=== PATIENT | male | born 1975 | race Caucasian/White ===

== ENCOUNTER 2016-12-10 15:40 | Inpatient (IN) | payer OTHER ==
--- NOTE | ~2016-12-10 | OR ---
Unit #: [id number] #: [id number] Patient: MARIELENA LINO [id number] [address] [address] [id number] I MR#: [id number] NAME: MARIELENA LINO ROOM: 466 Date of Procedure: 12/11/2016 Admission Date: 12/10/2016 Surgeon: Caden Soolrzano M.D. : 1975 Attending Physician: Luzma Lopez M.D. OPERATIVE REPORT PREOPERATIVE DIAGNOSIS Dysphagia for the past week. PROCEDURES PERFORMED Upper gastrointestinal endoscopy and biopsy. POSTOPERATIVE DIAGNOSES 1. The patient had [id number] distal erosive esophagitis; however, no stricture or mucosal ring was present. 2. Mild prepyloric antral erosive gastritis. 3. Rest of the examination up to third part of duodenum was normal. RECOMMENDATIONS 1. Pantoprazole 40 mg p.o. b.i.d. 2. Diet as tolerated. SEDATION USED Procedural sedation. DESCRIPTION OF PROCEDURE Following detailed explanation of the potential risks and complications of An upper endoscopy, namely perforation, bleeding, and complication related to sedation, the patient was brought to GI lab and laid in the left lateral decubitus position. Incremental conscious sedation using Versed was given. Posterior pharyngeal wall was sprayed with Cetacaine spray. Lubricated tip of the Olympus video upper endoscope was passed through the bite block into the proximal esophagus under direct vision. The entire esophageal mucosa was examined. The patient was noted to have grade 1 to 2 distal erosive esophagitis with erosions ascending above the Z-line in the distal esophagus. The scope was then advanced into the gastric cavity and the latter was insufflated. Mucosa of the fundus, body, and antrum was examined. Mild prepyloric antral erythema erosions noted indicating antral gastritis. Pylorus was intubated with visualization of the normal duodenal bulb and second and third part of the duodenum. Upon withdrawal and retroflexion, incisura, cardia, and greater curve was examined and a biopsy was obtained from the antrum for CLOtest. The scope was then withdrawn in the distal esophagus. The entire esophageal mucosa was examined all the way up to pharynx. No additional findings were noted. The patient tolerated the procedure without any postprocedure complications. Unit #: [id number] #: [id number] Patient: MARIELENA LINO Dictated by... Guillermo Carroll/keysha TD: 12/11/2016 21:43 JOB #: [id number] CC: Kameron Garnica M.D. OPERATIVE REPORT Page 1 of 1 X Caden Solorzano MD X PROCEDURE OPERATIVE NOTE
--- NOTE | ~2016-12-10 | MR32 ---
[facility] A Service of [facility] / [facility] RADIOLOGY TEXT RESULTS PATIENT: MARIELENA LINO LOCATION: [address] : [birth year] UNIT #: [id number] AGE: [address]: Shae Amaya MD SEX: M ORDER DR: [id number] [place] [address] [facility]. [place], [place] [address] [id number] I MR#: [id number] Acc #: [id number] NAME: MARIELENA LINO : 1975 SEX: M STUDY DATE/TIME: 12/12/2016 20:39 UNIT: [facility] ROOM: [facility] STUDY DESCRIPTION: MR Cervical Wo Contrast Attending Physician: Shae Amaya M.D. Ordering Physician: Kati Gomez M.D. Primary Care Physician: Primary Care Physician No MRI CENTER REPORT This report is preliminary unless electronic signature is present. EXAM Cervical MRI HISTORY Patient admitted on 12/10/2016 with generalized weakness, aphasia and a chronic history of sarcoidosis. TECHNIQUE Multiplanar imaging of the cervical spine was performed with short and long TR. FINDINGS Alignment is satisfactory. Disc space heights are preserved. There is mild disc bulging at C3-4, more prominent to the right of midline than to the left. There is no evidence of significant canal or foraminal narrowing. The cord is normal in size and signal. There is no evidence of marrow edema. No paraspinous masses are seen. The paraspinous muscles suggest generalized atrophy. IMPRESSION 1. Minimal disc bulging to the right of midline at C3-4. 2. Normal cervical cord. 3. No evidence of marrow edema. 4. Generalized atrophy of paraspinous muscles. Dictated by... Gonzalo Falcon M.D. THIS IS AN ELECTRONICALLY VERIFIED REPORT Gonzalo Falcon M.D. at 12/13/2016 3:47 PM Ramon TD: 12/13/2016 07:58 [facility] A Service of [facility] / [facility] RADIOLOGY TEXT RESULTS PATIENT: MARIELENA LINO LOCATION: [address] : [birth year] UNIT #: [id number] AGE: [address]: Shae Amaya MD SEX: M ORDER DR: GABBY #: [id number] MRI CENTER REPORT Page 1 of 1 COPY
--- NOTE | ~2016-12-10 | A ---
[facility] Nutrition Therapy DATE: 12/13/16 Patient: MARIELENA LINO Physician: MATILDE Address: [address] [facility] Room/Bed: [address], Zip: [place] [id number] Admit Date: 12/10/16 Date of : [birth year] Height: 5 7 Weight: 250 113.39 NUTRITIONAL ASSESSMENT: REASON: NPO IN ICU ASSESSMENT PT IS 41 Y.O. MALE ADMITTED FOR ASPIRATION PNA PMH: SARCOIDOSIS Anthropometrics: 5'7", WT: 250# (BEDSIDE) (114 KG), BMI: 39.2, 169%IBW Labs: GLU: 155, BUN: <5, CREAT: <0.3, ALT: 41, K+:3.4 Meds: KCL, PROTONIX, NACL I/O & Bowel function: 120/1275 Skin Integrity: NO KNOWN SKIN ISSUES Estimated Nutrition Needs: 5690-9502 KCAL (15-20 KCAL/KG BW) 114-136 G PRO (1.0-1.2 G PRO/KG BW) FLUIDS CONSISTENT W/KCAL NEEDS OR MANAGE PER MD Assessment: CHART REVIEWED AND EVENTS NOTED. PT SEEN FOR NPO IN ICU ASSESSMENT. PT CURRENTLY ASLEEP ON BIPAP, UNABLE TO INTERVIEW PT. RD SPOKE TO FAMILY. FAMILY REPORT PT TO HAVE DIFFICULTY SWALLOWING PAST MONTH AND REPORTS ~30-40# WEIGHT LOSS IN PAST MONTH/SEVERE!. PER RN AND CHART, PT NOTED TO HAVE HYDROELECTRIC PLANT STRUCTURAL ENGINEER EVAL REVEALING ASPIRATION AND DYSPHAGIA 2'?NEUROMUSCULAR DYSFUNCTION/WEAKNESS. NO CURRENT PLANS IN PLACE FOR RE-HYDROELECTRIC PLANT STRUCTURAL ENGINEER EVAL. RD TO FOLLOW AND MAKE RECOMMENDATIONS BELOW. FAMILY REPORTED NO DIET QUESTIONS AT THIS TIME. Dx: INADEQUATE ORAL INTAKE R/T DYSPHAGIA NOTED AEB HYDROELECTRIC PLANT STRUCTURAL ENGINEER EVAL AND FAMILY REPORT ABOVE, SEVERE ~30-40# WEIGHT LOSS NOTED. Intervention: 1. NPO Monitoring, Evaluation and Goals: 1. ORAL INTAKE; ADVANCE DIET TOLERATED PER HYDROELECTRIC PLANT STRUCTURAL ENGINEER W/NO SIGNS OF DYSPHAGIA (PO>50%) 2. ENTERAL NUTRITION; PROVIDE ~80-100% ESTIMATED NEEDS 3. LABS; WNL: GLU, K+ 4. WEIGHTS; PREVENT UNINTENTIONAL WEIGHT LOSS MONITOR: [facility] Nutrition Therapy DATE: 12/13/16 Patient: MARIELENA LINO Physician: MATILDE Address: [address] Room/Bed: [address], Zip: [place] [address] Admit Date: 12/10/16 Date of : [birth year] Height: 5 7 Weight: 250 113.39 -WEIGHTS -HYDROELECTRIC PLANT STRUCTURAL ENGINEER RE-EVAL -DIET ADVANCEMENT/PO INTAKE -ALTERNATIVE NUTRITION? -LABS Recommendations: 1. ONCE MEDICALLY FEASIBLE, ADVANCE DIET PER HYDROELECTRIC PLANT STRUCTURAL ENGINEER + REGULAR DIET 2. IF PT FAILS HYDROELECTRIC PLANT STRUCTURAL ENGINEER RE-EVAL/DEEMS PT NOT APPROPRIATE FOR DIET ADVANCEMENT, RECOMMEND TO PLACE DHT AND BEGIN ALTERNATIVE NUTRITION SUPPORT OF JEVITY 1.5 @ 20 ML/HR, ADVANCE 10 ML q 8 HOURS TO GOAL RATE OF 60 ML/HR + SUGAR-FREE PROSTAT BID -PROVIDES 2360 KCAL, 121 G PRO, 1094 ML FREE H20 ADD FREE H20 FLUSHES PER MD 3. REPLACE K+-NOTED TO BE LOW RD WILL F/U PER PROTOCOL PT IS SEVERELY COMPROMISED Respectfully, SAVI SCHULZ MS, RD, LD [facility] cc: client file
--- NOTE | ~2016-12-10 | DS ---
Unit #: [id number] #: [id number] Patient: MARIELENA LINO [id number] [place], [place] [address] [id number] I MR#: [id number] NAME: MARIELENA LINO ROOM: 548 Age: 41 Sex: M Admission Date: 12/10/2016 : 1975 Discharge Date: 12/28/2016 Attending Physician: Shae Amaya M.D. Primary Care Physician: No Primary Care Physician DISCHARGE SUMMARY HOSPITAL COURSE Since last dictation, patient has done exceptionally well. He has been removed from the ventilator and is being maintained either on TP3 with suctioning or a trach collar on 8 L with normal oxygen saturations. He has not had any respiratory distress. Given he is doing well on the ventilator, patient is felt to be appropriate for [facility] and we are currently waiting precertification. If obtained he can be discharged later today. Again patient has this undiagnosed neuromuscular weakness, which may Represent a seronegative myasthenia gravis versus another underlying condition. He will need EMG and nerve conduction studies upon arrival to [place] to further evaluate. However, he has significantly improved following a pulse dose of IVIG and continued Mestinon therapy. DISCHARGE CONDITION Stable. DISCHARGE STATUS Discharged to [facility]. DISCHARGE MEDICATIONS 1. Albuterol sulfate 3 mL nebulized 4 times daily p.r.n. for shortness of breath. 2. Tylenol 325 mg per PEG q.4 hours p.r.n. for mild pain. 3. Lovenox 40 mg subcutaneously q. 24 hours. 4. Trazodone 50 mg at bedtime per PEG. 5. Docusate syrup 100 mg for 10 mL, 300 mg per G-tube daily p.r.n. for constipation. 6. MiraLAX 17 g per PEG daily p.r.n. for constipation. 7. Oxycodone 5 mg per PEG 4 time daily p.r.n. for pain. 8. Mestinon 60 mg per PEG every 8 hours. 9. Protonix 40 mg per PEG daily. 10. Jevity 1.5 at 60 mL/hour. 11. In addition, patient received 30 mL of sugar free ProStat b.i.d. and free water flushes 50 mL q.4 hours. DISCHARGE INSTRUCTIONS 1. The patient is to remain NPO for now but will be seen by speech therapy at [facility] to further evaluate his dysphagia secondary to his neuromuscular weakness. 2. He can increase activity as tolerated, under the care of physical and occupational therapy. Unit #: [id number] #: [id number] Patient: MARIELENA LINO 3. I will continue tube feeds as previously noted. FOLLOWUP Again, patient will need to be seen by neurology at [facility] for further evaluation of this neuromuscular weakness with EMG and nerve conduction studies. Will also be followed by pulmonology at [facility]. Dictated by... Shae Amaya M.D. LEANNE/simón TD: 12/28/2016 08:03 JOB #: [id number] DISCHARGE SUMMARY Page 1 of 1 X Shae Amaya MD X DISCHARGE SUMMARY
--- NOTE | ~2016-12-10 | FU ---
[facility] Nutrition Therapy DATE: 12/20/16 Patient: MARIELENA LINO Physician: MATILDE Address: [address] [facility] Room/Bed: [address], Zip: [place] [address] Admit Date: 12/10/16 Date of : [birth year] Height: 5 7 Weight: 226 102.6 NUTRITION MONITORING/FOLLOW-UP: Reason: Tube feed follow-up Anthropometrics: Ht: 5'7" Adm wt: 113.6 kg (250#) BMI: 39.2 Current wt: 102.7 kg (226#) Labs: Cl- 99, Gluc 140, Creat 0.3 Meds: Zofran, Mg, K, Protonix, Propofol @ 12 mL/hr I&O's: 2547/1890, last BM 12/15 Skin: no issues noted, no edema noted Estimated Nutrition Needs: 8798-1376 kcal (15-20 kcal/kg) 114-136 g protein (1.0-1.2 g/kg) Assessment: Chart reviewed, events noted. Pt is remains awake and intubated in the ICU. Pt was extubated and re-intubated yesterday (12/19) d/t weak throat muscles. Per RN, plans in place for trach and PEG placement. Pt is now receiving propofol @12 mL/hr, which is providing an extra 317 kcal from lipids/d. Rate of enteral nutrition was decreased yesterday (12/19) to 45 mL/hr + prostat TID d/t propofol. Per pump history, pt received 91% of goal volume x 24 hrs. See recommendations below. Dx: Inadequate oral intake RT dysphagia AEB CAR WASH MANAGER evaluation and family report, severe ~30-40# weight loss. -ACTIVE Intervention: 1. Enteral nutrition Monitoring, Evaluation and Goals: 1. Enteral nutrition; provide >80% of estimated needs and goal volume x 24 hrs -MET 2. Labs; WNL -IN PROGRESS 3. Weight; prevent unintentional weight loss -IN PROGRESS Recommendations: 1. While propofol is being provided, continue Jevity 1.5 @ 45 mL/hr + 30 mL prostat TID. This provides: 2237 kcal/ 114 g protein/ 821 mL free H2O. Add free h20 flushes per MD 2. If propofol d/c'd, increase rate of Jevity 1.5 to new goal rate of 60 mL/hr 30 mL [facility] Nutrition Therapy DATE: 12/20/16 Patient: MARIELENA HOLLAND Physician: MATILDE Address: [address] [facility] Room/Bed: [address], Zip: [place] [address] Admit Date: 12/10/16 Date of : [birth year] Height: 5 7 Weight: 226 102.6 prostat BID. This will provide: 2360 kcal/ 121 g protein/ 1094 mL free H2O. Add free h20 flushes per MD 3. Once pt extubated, advance diet per CAR WASH MANAGER + regular Status: Pt is at a moderate nutritional risk. RD will f/u per protocol. Respectfully, Teressa Holden, Pantograph Machine Set Up Operator Jarad Machado MS, RD, LD Food and Nutritional Services [facility] cc: client file
--- NOTE | ~2016-12-10 | CR71 ---
[facility] A Service of [facility] & [facility] RADIOLOGY TEXT RESULTS PATIENT: MARIELENA LINO LOCATION: [address] : [birth year] UNIT #: [id number] AGE: [address]: Shae Amaya MD SEX: M ORDER DR: [id number] [facility] [address] [facility]. [place], [place] [address] [id number] I MR#: [id number] Acc #: [id number] NAME: MARIELENA LINO : 1975 SEX: M STUDY DATE/TIME: 12/18/2016 18:02 UNIT: [facility] ROOM: [facility] STUDY DESCRIPTION: CR Chest Single View Attending Physician: Shae Amaya M.D. Ordering Physician: Shae Amaya M.D. Primary Care Physician: Primary Care Physician No MEDICAL IMAGING REPORT This report is preliminary unless electronic signature is present EXAM Portable chest HISTORY Intubation. Respiratory failure. FINDINGS ETT tip is 4 cm above the chichi. Right arm-approach PICC tip is near the junction of the SVC and right atrium. Feeding tube extends into the stomach but the tip is not seen. Elevation of the right hemidiaphragm and bilateral pleural effusions are similar to yesterday. Increased atelectasis or infiltrate in the left base. Dictated by... Max Ashley M.D. THIS IS AN ELECTRONICALLY VERIFIED REPORT Max Ashley M.D. at 12/18/2016 10:51 PM DFL/psc TD: 12/18/2016 21:49 JOB #: [id number] MEDICAL IMAGING REPORT Page 1 of 1 COPY
--- NOTE | ~2016-12-10 | CR72 ---
[facility] A Service of [facility] & [facility] / [facility] RADIOLOGY TEXT RESULTS PATIENT: MARIELENA LINO LOCATION: [place] [address] : [birth year] UNIT #: [id number] AGE: [address]: Luzma Lopez MD SEX: M ORDER DR: [id number] [place] [address] [facility]. [place], [place] [address] [id number] I MR#: [id number] Acc #: [id number] NAME: MARIELENA LINO : 1975 SEX: M STUDY DATE/TIME: 12/10/2016 14:56 UNIT: [facility] ROOM: 922[address] STUDY DESCRIPTION: CR Chest Single View Portable Attending Physician: Luzma Lopez M.D. Ordering Physician: Mihai Husain M.D. Primary Care Physician: Primary Care Physician No MEDICAL IMAGING REPORT This report is preliminary unless electronic signature is present EXAM Portable chest HISTORY Difficulty breathing and swallowing for 1 day. FINDINGS Moderate patchy infiltrate in the left lung base is new compared to chest x-ray 09/24/2009. Although nonspecific this could be due to pneumonia. Mild linear atelectasis or scarring at the right base. Moderate chronic elevation of the right hemidiaphragm is stable. Remainder of the lungs are clear. IMPRESSION 1. Moderate patchy infiltrate in the left lung base. Although nonspecific this could be due to pneumonia in the appropriate clinical context. Correlation to patient history and symptoms is recommended and short-term followup chest x-ray is suggested. 2. Moderate chronic elevation of the right hemidiaphragm. Dictated by... Max Ashley M.D. THIS IS AN ELECTRONICALLY VERIFIED REPORT Max Ashley M.D. at 12/11/2016 11:26 PM XAVIER/duane TD: 12/11/2016 09:43 JOB #: [id number] MEDICAL IMAGING REPORT Page 1 of 1 COPY
--- NOTE | ~2016-12-10 | FU ---
[facility] Nutrition Therapy DATE: 12/23/16 Patient: MARIELENA LINO Physician: MATILDE Address: [address] [facility] Room/Bed: [address], Zip: [place] [address] Admit Date: 12/10/16 Date of : [birth year] Height: 5 7 Weight: 238 108.2 NUTRITION MONITORING/FOLLOW-UP: Reason: PT SEEN FOR FOLLOW-UP DX: ASPIRATION PNA Anthropometrics: 5'7", WT: 238# (108 KG), BMI: 37.3 -WEIGHTS HAVE RANGED 226-250# SINCE ADMIT Labs: GLU: 132, CREAT: 0.3, CA+:8.1, ALB: 2.5 (12/16/16) Meds: ZOFRAN, MG/K PROTOCOL, PROTONIX I&O's: 4641/1500 Skin: NO KNOWN SKIN ISSUES Estimated Nutrition Needs: 7555-9083 KCAL 114-136 G PRO Assessment: CHART REVIEWED AND EVENTS NOTED. PT SEEN FOR FOLLOW-UP. PT ON CPAP, EXTUBATED AT TIME OF VISIT. RD SPOKE TO FAMILY AT BEDSIDE. FAMILY REPORTED NO DIET QUESTIONS AT THIS TIME. OF NOTE, PT RECEIVING ALTERNATIVE NUTRITION SUPPORT OF JEVITY 1.5 @ 45 ML/HR + SUGAR-FREE PROSTAT TID. PLANS IN PLACE TO ADVANCE EN TO GOAL RATE OF 60 ML/HR + SUGAR-FREE PROSTAT BID. RD TO CONTINUE TO FOLLOW. -TUBE FEEDS PROVIDE 1920 KCAL, 114 G PRO, 821 ML FREE H20 Dx: INADEQUATE ORAL INTAKE R/T DYSPHAGIA AEB EMMA TOVAR, FAMILY REPORT, ~30-40# WEIGHT LOSS.-ACTIVE Intervention: 1. ENTERAL NUTRITION SUPPORT Monitoring, Evaluation and Goals: 1. ENTERAL NUTRITION; PROVIDE ~80-100% ESTIMATED NUTRIENT NEEDS-ACTIVE 2. ORAL INTAKE; ADVANCE DIET PER ARC FURNACE OPERATOR AND TOLERATE W/NO C/O N/V/D (PO>50%)-NOT MET YET 3. LABS; WNL-ACTIVE MONITOR: -TF RATE/RESIDUALS -WEIGHTS -LABS -EMMA TOVAR [facility] Nutrition Therapy DATE: 12/23/16 Patient: MARIELENA LINO Physician: MATILDE Address: [address] [facility] Room/Bed: [address], Zip: [place] [address] Admit Date: 12/10/16 Date of : [birth year] Height: 5 7 Weight: 238 108.2 Recommendations: 1. RECOMMEND TO ADVANCE CURRENT ENTERAL NUTRITION SUPPORT OF JEVITY 1.5 TO GOAL RATE OF 60 ML/HR + 30 ML SUGAR-FREE PROSTAT BID -TOTAL PROVIDES 2360 KCAL, 121 G PRO, 1094 ML FREE H20 CONTINUE FREE H20 FLUSHES PER MD 2. ONCE MEDICALLY FEASIBLE, ADVANCE DIET PER ARC FURNACE OPERATOR + REGULAR DIET RD WILL F/U PER PROTOCOL PT IS MODERATELY COMPROMISED Respectfully, SAVI SCHULZ MS, RD, LD Food and Nutritional Services [facility] cc: client file
--- NOTE | ~2016-12-10 | CR7 ---
[facility] A Service of [facility] & [facility] RADIOLOGY TEXT RESULTS PATIENT: MARIELENA LINO LOCATION: [address] : [birth year] UNIT #: [id number] AGE: [address]: Shae Amaya MD SEX: M ORDER DR: [id number] [facility] [address] [facility]. [place], [place] [address] [id number] I MR#: [id number] Acc #: [id number] NAME: MARIELNEA LINO : 1975 SEX: M STUDY DATE/TIME: 12/13/2016 14:43 UNIT: [facility] ROOM: [facility] STUDY DESCRIPTION: CR Abdomen Single AP View Attending Physician: Shae Amaya M.D. Ordering Physician: Kameron Garnica M.D. Primary Care Physician: No Primary Care Physician MEDICAL IMAGING REPORT This report is preliminary unless electronic signature is present EXAM KUB 12/13 INDICATIONS Feeding tube placement today. FINDINGS Supine view of the abdomen was obtained. Tip of a flexible feeding tube is noted in the antrum of the stomach. The bowel gas pattern is normal. Dictated by... Gonzalo Tovar Jr., M.D. THIS IS AN ELECTRONICALLY VERIFIED REPORT Gonzalo Tovar Jr., M.D. at 12/14/2016 7:53 AM ODILIA/chas TD: 12/13/2016 17:02 JOB #: [id number] MEDICAL IMAGING REPORT Page 1 of 1 COPY
--- NOTE | ~2016-12-10 | CR72 ---
[facility] A Service of [facility] RADIOLOGY TEXT RESULTS PATIENT: MARIELENA LNIO LOCATION: [address] : [birth year] UNIT #: [id number] AGE: [address]: Shae Amaya MD SEX: M ORDER DR: [id number] [address] [address] [id number] I MR#: [id number] Acc #: [id number] NAME: MARIELENA LINO : 1975 SEX: M STUDY DATE/TIME: 12/19/2016 2:44 UNIT: [facility] ROOM: [facility] STUDY DESCRIPTION: CR Chest Single View Portable Attending Physician: Shae Amaya M.D. Ordering Physician: Julia Werner D.O. Primary Care Physician: Primary Care Physician No MEDICAL IMAGING REPORT This report is preliminary unless electronic signature is present EXAM AP portable chest, 12/19/2016 HISTORY Respiratory failure. Pneumonia. Endotracheal tube. Followup cardiopulmonary status. TECHNIQUE AP portable chest x-ray. FINDINGS The examination shows no significant change since the prior two studies. Elevation right hemidiaphragm. Infiltrate or atelectasis in the lung bases. Upper lungs clear. Endotracheal tube, right arm PICC and Dobbhoff feeding tube remain in good position. IMPRESSION Stable portable chest radiograph, unchanged since yesterday. Dictated by... Jakob Haines M.D. THIS IS AN ELECTRONICALLY VERIFIED REPORT Jakob Haines M.D. at 12/19/2016 5:58 AM MATIAS/denise TD: 12/19/2016 04:38 JOB #: [id number] MEDICAL IMAGING REPORT [facility] A Service of [facility] RADIOLOGY TEXT RESULTS PATIENT: MARIELENA LINO LOCATION: [facility]09-30 : [birth year] UNIT #: [id number] AGE: [address]: Shae Amaya MD SEX: M ORDER DR: Page 1 of 1 COPY
--- NOTE | ~2016-12-10 | CO ---
Unit #: [id number] #: [id number] Patient: MARIELENA LOGAN [id number] [address] [place], [place] [address] [id number] I MR#: [id number] NAME: MARIELENA LOGAN ROOM: 466 Age: 41 Sex: M Admission Date: 12/10/2016 : 1975 Attending Physician: Luzma Lopez M.D. Consultation Date: 12/11/2016 CONSULTATION REPORT REASON FOR CONSULTATION Dysphagia. HISTORY OF PRESENT ILLNESS Mr. 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 He has been having increasing shortness of breath for the past 2 to 3 weeks along with difficulty in swallowing over the last 10 days. He also has cough productive of sputum. There was no history of fever, chills, or rigors. He had difficulty both with swallowing liquids as well as solids, which seem to get stuck in the esophagus. The patient has had some aspiration on a swallow study recently done. He was discharged home from the [facility] [place] [facility] Emergency Room on 12/09/2015. He was given prednisone for sarcoidosis at that time. Upon arrival this time, he is afebrile with a temperature of 98.1, but has sinus tachycardia, and patchy infiltrate in left lung base. PAST MEDICAL HISTORY Significant for history of sarcoidosis diagnosed in 2009. The patient does not have any family doctor. PAST SURGICAL HISTORY Included a bronchoscopy and right hand surgery. MEDICATIONS At home, the patient has been on prednisone home medication. He is not on any other medication. ALLERGIES No known drug allergies. FAMILY HISTORY Mother has hypothyroidism. No family history of colon, pancreatic cancer, or liver disease. SOCIAL HISTORY The patient does not smoke. He is being physically quite active except for the past two weeks when he is walking on his walker. He does drink very rarely. Works in a warehouse. Lives at home with his mom. REVIEW OF SYSTEMS Detailed review of organ system does not reveal any fever, chills, or rigors. There is history of weight loss about 25 to 30 pounds over the past couple of months. There was no history of headache, seizures, chest Unit #: [id number] #: [id number] Patient: HOLLAND,MARIELENA pain, or syncope. There is history of cough with some expectoration and shortness of breath. No history of hemoptysis. No history of dysuria, hematuria, or pyuria. No history of abdominal pain. No history of nausea, vomiting, diarrhea. No history of hematemesis, melena, or hematochezia. No history of skin rash, aphthous ulcer in mouth, or reactive arthritis. Rest of the review of organ systems is unremarkable. PHYSICAL EXAMINATION GENERAL: He appears unwell and sick, and has sinus tachycardia and tachypnea. VITAL SIGNS: Indicate a temperature of 97.5, pulse is 109 per minute and regular, respiratory rate is 26, blood pressure is 136/85. He weighs 250 pounds, which is close to his baseline weight. HEENT: He has no pallor, icterus, lymphadenopathy, or peripheral edema. CARDIOVASCULAR: Normal heart sounds. No murmurs on auscultation. LUNGS: Reveals bilateral diminished symmetric air entry. ABDOMEN: Soft, obese, and nontender. Liver and spleen are not palpable. Bowel sounds normal. DIAGNOSTIC STUDIES LABORATORY RESULTS: Shows a leukocytosis with a white count of 18,000 with left shift and a hemoglobin of 8 indicating some degree of hemoconcentration, platelet count is 250. LFTs showing AST and ALT of 25 and 60 respectively. Alkaline phosphatase is normal. The patient's BUN and creatinine is also normal. Blood glucose 131. IMAGING STUDIES: A chest x-ray shows left lower lobe infiltrate. CLINICAL IMPRESSION The patient with new onset of pneumonia and also dysphagia for the past week to 10 days. The latter could be related to gastroesophageal reflux or Zaina esophagitis. A diagnostic endoscopy will be performed shortly. The patient will be reviewed thereafter. The pros and cons of the procedure and potential risks and complications of the procedure were discussed with the patient and his mom and they were reassured. Thank you for asking me to see this pleasant gentleman. I appreciate the consult. Dictated by.Betty. Guillermo Carroll TD: 12/11/2016 23:30 JOB #: [id number] Unit #: [id number] #: [id number] Patient: MARIELENA LOGAN CONSULTATION REPORT Page 1 of 1 X Caden Solorzano MD CONSULTATION REPORT
--- NOTE | ~2016-12-10 | TOC ---
Unit #: [id number] #: [id number] Patient: MARIELENA LINO [id number] [address] [place], [place] [address] [id number] I MR#: [id number] NAME: MARIELENA LINO ROOM: CIC2 Age: 41 Sex: M Admission Date: 12/10/2016 : 1975 Attending Physician: Shae Amaya M.D. Primary Care Physician: No Primary Care Physician TRANSFER OF CARE SUMMARY [facility], general surgery. PROCEDURES Trach and PEG placement. HOSPITAL COURSE Since last dictation, patient was extubated December 18 after he had improvement in respiratory status. Unfortunately, patient developed recurrent significant respiratory secretions and has required recurrent intubation. Ultimately, due to patient's underlying neuromuscular weakness as outlined below, patient has subsequently undergone trach and PEG placement. He is currently being maintained on CPAP therapy during the day with plans for full ventilator support from 6:00 p.m. to 6:00 a.m. His respiratory difficulties at this point are primarily due to his significant dysphagia, which is also a result of his neuromuscular weakness, and the plan ultimately is to try to keep him off ventilator during the day and this will be further evaluated at [facility] upon discharge. Regarding the patient's neuromuscular weakness, he has completed a 5-day course of IVIG on December 19, 2016. He has had significant improvement in weakness since that time, particularly distally, less so proximally. However, he continues to suffer from significant dysphasia. 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 Patient will continue on Mestinon therapy for now and will require neurology consultation and EMG and nerve conduction studies upon arrival to [facility] for further delineation of his underlying neuromuscular disorder. Patient now is clinically stable and is awaiting precertification to transfer to [facility]. Plan is to continue patient on Mestinon upon transfer, again, with plans for EMG and nerve conduction studies ultimately. Further hospital course can be dictated as an addendum. Dictated by... Shae Amaya M.D. LEANNE/consuelo Unit #: [id number] #: [id number] Patient: MARIELENA LINO TD: 12/24/2016 11:58 JOB #: [id number] TRANSFER OF CARE SUMMARY Page 1 of 1 X Shae Amaya MD X TRANSFER OF CARE SUMMARY
--- NOTE | ~2016-12-10 | CO ---
Unit #: [id number] #: [id number] Patient: MARIELENA LINO [id number] [place], [place] [address] [id number] I MR#: [id number] NAME: MARIELENA LINO ROOM: CICCU2 Age: 41 Sex: M Admission Date: 12/10/2016 : 1975 Attending Physician: Shae Amaya M.D. Consultation Date: 12/12/2016 CONSULTATION REPORT PRIMARY CARE PHYSICIAN Not listed. REASON FOR CONSULTATION Dysphagia. PATIENT IDENTIFICATION This is a 41-year-old, right-handed, male, evaluated in room 466 at [facility]. SOURCE OF INFORMATION Obtained from the patient as well as the patient's mother at the bedside as well as the medical record. HISTORY OF PRESENT ILLNESS This is a 41-year-old, right-handed, male with a past medical history of sarcoidosis, who presents to [facility] with chief complaint of shortness of air, difficulty swallowing, and weakness. The patient has been seen recently at [facility] over the last week or so for complaints of increased shortness of breath and difficulty swallowing and it looks like he had a video swallow done on 12/06/2016 that showed tracheal aspiration with poor cough reflex following administration of thin liquids. Additionally, also noted moderate luminal narrowing at C4-C5 concerning for possible esophageal stricture. He was discharged home and told to follow up with Gastroenterology. He returned to [facility] Emergency Department on 12/08/2016, and was started on prednisone for possible sarcoidosis exacerbation. His mother states that his steroids were increased, but he was unable to tolerate and only took them for a few days. He presented to [facility] on 12/12/2016 for worsening symptoms. He was admitted for aspiration pneumonia and started on Unasyn and started treatment for possible sepsis with initial lactic acid of 1.1. He underwent upper gastrointestinal endoscopy and biopsy by paper carrier on 12/11/2016 for dysphagia, with postoperative diagnosis of myvi-sp-jvubxcrl distal erosive esophagitis with no stricture or mucosal ring present, mild prepyloric antral erosive gastritis, with the rest of the examination up to the third part of the duodenum normal. He was recommended to start pantoprazole and diet as tolerated. He was seen by Speech Therapy today after having a video and was recommended that he remain n.p.o. Neurology was asked to evaluate given his weakness and ongoing dysphagia of unclear etiology. I spoke with Dr. Amaya at the time of consultation. After speaking with the patient and the patient's mother, the patient's mother states that he fell two years ago and she thinks that he has been progressively worse since then. She states that he fell on ice during winter and hit the back Unit #: [id number] #: [id number] Patient: MARIELENA LINO of his head with no syncope or loss of consciousness. She states he was seen in the emergency room and had x-rays and told that there was no injury and that he needs supportive care. However, since then he has been independent and unable to ambulate, and actually worked at a warehouse; however, 2 to 3 weeks ago, he began to have significant difficulty with swallowing, walking, coughing, with generalized weakness and fatigue. She reports he has had a 30- to -40 pound weight loss over the last month, and certainly on examination he is weak. He denies any focal facial arm or leg symptoms. He reports occasional numbness and tingling of his arms and legs bilaterally over the last couple of years, but no focal findings. He denies any focal weakness, sudden speech arrest, sudden vision changes, or any vision changes whatsoever. He denies any headache, fever, or chills. He complains of chronic intermittent neck pain over the last two years. His chief complaint right now is progressive weakness and fatigue, which is generalized, trouble swallowing, and trouble breathing and again this has been going on progressively over the last 2 to 3 weeks. He denies any exacerbating or alleviating factors other than fatigue. PAST MEDICAL HISTORY 1. Sarcoidosis. He is not taking any medications and has not been seen recently as an outpatient. Please see above for ER visits to [facility]. 2. Multiple emergency room visits to [facility] within the past week. Please see above. Please also see H and P. 3. Admission to [facility] from 09/24/2009 through 09/25/2009 for dyspnea. He was seen by Pulmonology and treated for possible bronchospasm, though it is doubtful per their recommendations of true asthma. He had an abnormal chest x-ray and CT scan representing possible sarcoidosis versus fungal pneumonia with reactive adenopathy. He was recommended to schedule a followup at [facility] for further CT scans and biopsy and he has been following at [facility] since then for sarcoidosis per verbal history. 4. Bronchoscopy. 5. Right hand surgery. FAMILY HISTORY Positive for hypothyroidism in his mother. Negative for any neurologic disease, and this was discussed at length with the patient's mother. ALLERGIES No known drug allergies. SOCIAL HISTORY The patient lives with his mom. He normally is independent. Works in a warehouse, but over the last few weeks, he has been walking with a walker due to increasing generalized weakness. He has had 30- to -40 pound weight loss over the last month. No history of tobacco use, alcohol abuse, or illicit drug use. HOME MEDICATIONS As per med rec. Include no medications actually, but it is reported that he was on prednisone. His mother states that he took prednisone for few days and then stopped it due to intolerance of side effects. REVIEW OF SYSTEMS 14-point review of systems was done. Pertinent positives are as discussed above, otherwise negative. Positive symptoms are as discussed above in detail. Unit #: [id number] #: [id number] Patient: MARIELENA LINO PHYSICAL EXAMINATION VITAL SIGNS: Temperature 97.3. He has been afebrile. Pulse 77, respirations 22, blood pressure 143/66, blood pressure in the ER on arrival was 134/96. He has been normotensive throughout his stay. Oxygen saturation 98%. He is on room air currently. Height 5 feet 7 inches, weight 250 pounds, BMI 39. NEUROLOGIC: He is resting in bed comfortably, in no apparent distress. He is awake. He is alert and oriented to person, place, and time as well as events. He has no aphasia. He does have dysarthria and dysphonia. He is able to follow commands. His comprehension appears to be clear and intact. Cranial nerve exam, he demonstrates full maxwell of vision. His eyes are conjugate. He does have left eye ptosis, that is worse with upward gaze testing x1 minute. Extraocular movements otherwise appear to be intact, but he has difficulty looking upwards, but he is able to do so. Sensation of face and scalp is intact. Strength of the muscles of facial expression is intact, but again he has left eye ptosis. Hearing is intact to voice and conversation. Tongue is midline. His uvula is midline and his palate elevation does appear to be intact upon repeated evaluation. Head turning and shoulder shrug is unremarkable independently. Neck is supple. Motor exam, he has significant weakness generalized. He has head and neck flexion weakness significant 3+/5. Head and neck extension is better. 4+ in the extremities proximally and distally. He appears to be weak 3+ to 4-. He appears to be possibly worse distally than proximally. He gets fatigued throughout exam. Sensory exam is intact to soft touch and pinprick sensation. No extinction appreciated. Gait and Romberg deferred at this time. His reflexes are absent throughout. Coordination is otherwise unremarkable. He has decreased tone. DIAGNOSTIC STUDIES IMAGING STUDIES: Chest x-ray from 12/10/2016, per Radiology report, moderate patchy infiltrate in the left lung base; although, nonspecific could be due to pneumonia in the appropriate clinical context correlation to patient's history and symptoms. He was recommended a short-term followup chest x-ray suggested. Moderate chronic elevation in the right hemidiaphragm. LABORATORY RESULTS: Sputum culture, final specimen gram stain sputum. Final specimen acceptable for culture. Moderate white blood cells, occasional epithelial cells, moderate gram-positive cocci in pairs and chains, moderate gram-positive rods, occasional gram-positive cocci in clusters, occasional gram-negative rods. Sodium 148, potassium 3.8, chloride 102, CO2 of 34, glucose 124, BUN 9, creatinine 0.3, estimated GFR 156.1, calcium is 9.3, AST 19, ALT 41, alkaline phosphatase 66, total protein 6.4, albumin 3.5. White blood cell count 13.8, hemoglobin 16, hematocrit 50.9, platelet count 233. Blood cultures preliminary, no growth after 24 hours x2 sets. Troponin less than 0.03 x2 sets. CK 56, procalcitonin 0.4, TSH 2.59, initial lactic acid 1.1, BNP of 21. Arterial blood gas on arrival; pH 7.424, pCO2 50.4, PO2 63.7, bicarb 33, O2 saturation 91.6 on FiO2 of 21%. CARDIOVASCULAR STUDIES: EKG shows sinus tachycardia with a ventricular rate of 104 beats per minute per Cardiology report. Please see that as per the report. IMPRESSION 1. Significant neuromuscular weakness with left ptosis, dysphagia, and dysphonia. Rule out myasthenia gravis. Rule out Lambert-Eaton myasthenic Unit #: [id number] #: [id number] Patient: MARIELENA LINO syndrome. Rule out amyotrophic lateral sclerosis. Rule out chronic inflammatory demyelinating polyneuropathy. 2. Aspiration pneumonia. 3. History of sarcoidosis. PLAN I have discussed the case with Dr. Gomez, who has seen and evaluated the patient as well at this time. The patient has significant neuromuscular weakness, left ptosis more apparent with upward gaze testing, dysphagia, and dysphonia. He has absent reflexes, decreased tone, and has had significant weight loss over the last month. We certainly need to rule out the above differential diagnoses. Dr. Gomez has ordered a CT of the chest without contrast to rule out thymoma, MRI of the brain as well as MRI of the C-spine. He has also ordered acetylcholine receptor antibodies; binding, blocking, and modulating; and Anti-MuSK, or muscle-specific kinase antibodies, and he is going to start him on a trial of low-dose Mestinon to see how he responds. We will follow the patient closely along with you and further recommendations pending workup and further clinical course. We discussed with the patient and his mother at the bedside and they agreed with above. He will also need an outpatient nerve conduction studies and EMGs, and possible lumbar puncture pending current workup and further clinical course. We thank you very much for allowing us to assist in the care of this patient. Dictated by... Vandana Kinney A.P.R.N. for Guillermo Smith/keysha TD: 12/13/2016 02:46 JOB #: [id number] CONSULTATION REPORT Page 1 of 1 X Vandana Kinney APRN X CONSULTATION REPORT
--- NOTE | ~2016-12-10 | CR72 ---
[facility] A Service of [facility] RADIOLOGY TEXT RESULTS PATIENT: MARIELENA LINO LOCATION: [address] : [birth year] UNIT #: [id number] AGE: [address]: Shae Amaya MD SEX: M ORDER DR: [id number]. [place], [place] [address] [id number] I MR#: [id number] Acc #: [id number] NAME: MARIELENA LINO : 1975 SEX: M STUDY DATE/TIME: 12/21/2016 17:59 UNIT: [facility] ROOM: [facility] STUDY DESCRIPTION: CR Chest Single View Portable Attending Physician: Shae Amaya M.D. Ordering Physician: Abdon Oneal Jr., M.D. Primary Care Physician: No Primary Care Physician MEDICAL IMAGING REPORT This report is preliminary unless electronic signature is present EXAM Frontal chest, 12/21/2016 INDICATIONS A 41-year-old male with a new tracheostomy. Shortness of air symptoms began today. TECHNIQUE Frontal chest compared with 02:17 hours. FINDINGS Tracheostomy tube in good position above the chichi. Right-sided PICC line unchanged. Cardiac silhouette borderline in size but stable. Lung volumes are low. Interval decrease in probable band-like atelectasis in the left lung base. There may be trace amount pleural fluid in the left lung base. No new consolidation or pneumothorax. IMPRESSION 1. Tracheostomy tube in good position above the chichi. No pneumothorax. 2. Enteric tube has been removed in the interval. Right-sided PICC line unchanged. 3. Improvement of left basilar atelectasis. Dictated by... Edmundo Ken M.D. THIS IS AN ELECTRONICALLY VERIFIED REPORT Edmundo Ken M.D. at 12/22/2016 7:27 AM Jason TD: 12/21/2016 20:39 [facility] A Service of [facility] RADIOLOGY TEXT RESULTS PATIENT: MARIELENA LINO LOCATION: [address] : [birth year] UNIT #: [id number] AGE: [address]: Shae Amaya MD SEX: M ORDER DR: GABBY #: [id number] MEDICAL IMAGING REPORT Page 1 of 1 COPY
--- NOTE | ~2016-12-10 | CR72 ---
[facility] A Service of [facility] RADIOLOGY TEXT RESULTS PATIENT: MARIELENA LINO LOCATION: [address] : [birth year] UNIT #: [id number] AGE: [address]: Shae Amaya MD SEX: M ORDER DR: [id number] [facility] [address] [place], [place] [address] [id number] I MR#: [id number] Acc #: [id number] NAME: MARIELENA LINO : 1975 SEX: M STUDY DATE/TIME: 12/21/2016 2:17 UNIT: [facility] ROOM: [facility] STUDY DESCRIPTION: CR Chest Single View Portable Attending Physician: Shae Amaya M.D. Ordering Physician: Kameron Garnica M.D. Primary Care Physician: Primary Care Physician No MEDICAL IMAGING REPORT This report is preliminary unless electronic signature is present EXAM AP portable chest 12/21/2016 HISTORY Respiratory failure. Patient on ventilator. Follow up cardiopulmonary status. TECHNIQUE AP portable chest x-ray. FINDINGS The exam shows no change since yesterday. Endotracheal tube, right arm PICC and Dobbhoff feeding tube remain in good position. Persistent elevation right hemidiaphragm and mild infiltrate or atelectasis in the lung bases. IMPRESSION Stable portable chest radiograph, unchanged since yesterday. Dictated by... Jakob Haines M.D. THIS IS AN ELECTRONICALLY VERIFIED REPORT Jakob Haines M.D. at 12/21/2016 5:59 AM MATIAS/serafin TD: 12/21/2016 03:05 JOB #: [id number] MEDICAL IMAGING REPORT Page 1 of 1 COPY
--- NOTE | ~2016-12-10 | CO ---
Unit #: [id number] #: [id number] Patient: MARIELENA LOGAN [id number] [address] [address] [id number] I MR#: [id number] NAME: MARIELENA LOGAN ROOM: CIC2 Age: 41 Sex: M Admission Date: 12/10/2016 : 1975 Attending Physician: Shae Amaya M.D. Primary Care Physician: Primary Care Physician No Consultation Date: 12/20/2016 CONSULTATION REPORT HISTORY OF PRESENT ILLNESS Mr. Logan is a 41-year-old gentleman, who carries a diagnosis of sarcoidosis, who was admitted here with respiratory insufficiency. With his evaluation, he has been found to have some aspiration pneumonia, dysphagia, and possible underlying neuromuscular disease. He is failing to wean from the ventilator and because of his dysphagia, swallowing study revealed an aspiration. We have been asked to place a trach and a PEG for long-term management. PAST MEDICAL HISTORY Sarcoidosis. PAST SURGICAL HISTORY He has had previous bronchoscopy and hand surgery. ALLERGIES No allergies to medication. MEDICATIONS Home medications include prednisone. Current hospital medications include Sublimaze, Diocto syrup, propofol, Duratears, Zofran, albuterol, Mestinon, Zosyn, Lovenox, mag sulfate, potassium replacement, Protonix, Combivent. FAMILY HISTORY Hypothyroidism, otherwise unremarkable. SOCIAL HISTORY The patient lives with his mother. Denies use of tobacco or alcohol. He works in a warehouse. REVIEW OF SYSTEMS Unobtainable. PHYSICAL EXAMINATION GENERAL: The patient is awake, alert, oriented, and responds appropriately by nodding his head to questions. He is currently on the ventilator. VITAL SIGNS: Temperature is 98.7, pulse 105, respirations 16, blood pressure 123/58. HEENT: Trachea is midline. No previous surgery. CARDIAC: Regular rhythm. Slightly tachy. LUNGS: Clear. ABDOMEN: Soft. No upper midline scars. No prior surgery. EXTREMITIES: No edema. Unit #: [id number] #: [id number] Patient: MARIELENA LOGAN NEUROLOGIC: Grossly intact, but muscular strength testing was not performed. SKIN: No skin rashes or lesions. DIAGNOSTIC STUDIES LABORATORY RESULTS: Blood gas shows a pH of 7.47, pCO2 46, pO2 147 on 40% FiO2. Basic metabolic panel was within normal limits. Magnesium is normal. White count 7800, hemoglobin 11, platelets 219,000. IMAGING STUDIES: X-rays unremarkable. Chest x-ray does show some atelectasis or an infiltrate. ASSESSMENT AND PLAN A 41-year-old gentleman with aspirational pneumonia, dysphagia, and probable degenerative neuromuscular disease. For long-term management, we have been asked to place a tracheostomy and a percutaneous endoscopic gastrostomy. I discussed procedure with the patient and his mother. Questions were answered. They understand and agreed to proceed. Dictated by... Guillermo Crisostomo/keysha TD: 12/20/2016 23:59 JOB #: [id number] CONSULTATION REPORT Page 1 of 1 X Gonzalo Medina MD CONSULTATION REPORT
--- NOTE | ~2016-12-10 | CR72 ---
[facility] A Service of [facility] & [facility] RADIOLOGY TEXT RESULTS PATIENT: MARIELENA LINO LOCATION: [address] : [birth year] UNIT #: [id number] AGE: [address]: Shae Amaya MD SEX: M ORDER DR: [id number] [facility] [address] [facility]. [place], [place] [address] [id number] I MR#: [id number] Acc #: [id number] NAME: MARIELENA LINO : 1975 SEX: M STUDY DATE/TIME: 12/20/2016 4:35 UNIT: [facility] ROOM: [facility] STUDY DESCRIPTION: CR Chest Single View Portable Attending Physician: Shae Amaya M.D. Ordering Physician: Kameron Garnica M.D. Primary Care Physician: Primary Care Physician No MEDICAL IMAGING REPORT This report is preliminary unless electronic signature is present EXAM AP portable chest 12/20/2016 HISTORY Respiratory failure. Patient on ventilator. Pneumonia. TECHNIQUE AP portable chest x-ray. FINDINGS The examination shows no change since yesterday. Marked elevation right hemidiaphragm with infiltrate and/or atelectasis in both lung bases. Endotracheal tube, right arm PICC and feeding tube remain in good position. IMPRESSION Stable portable chest radiograph, unchanged since yesterday. Dictated by... Jakob Haines M.D. THIS IS AN ELECTRONICALLY VERIFIED REPORT Jakob Haines M.D. at 12/20/2016 9:53 PM MATIAS/duane TD: 12/20/2016 06:56 JOB #: [id number] MEDICAL IMAGING REPORT Page 1 of 1 COPY
--- NOTE | ~2016-12-10 | OR ---
Unit #: [id number] #: [id number] Patient: MARIELENA LINO [id number] [address] [address] [id number] I MR#: [id number] NAME: MARIELENA LINO ROOM: [facility] Date of Procedure: 12/21/2016 Admission Date: 12/10/2016 Surgeon: Brayan Lynch M.D. : 1975 Attending Physician: Shae Amaya M.D. OPERATIVE REPORT PREOPERATIVE DIAGNOSES Need for bypass feeds and nutritional support. POSTOPERATIVE DIAGNOSES Need for bypass feeds and nutritional support. PROCEDURES PERFORMED 1. Esophagogastroduodenoscopy. 2. Placement of percutaneous endoscopic gastrostomy tube. ANESTHESIA General endotracheal anesthesia. FINDINGS The PEG was placed in good position. SPECIMENS None. COMPLICATIONS None apparent. CONDITION The patient tolerated the procedure well. INDICATIONS FOR PROCEDURE The patient is a 41-year-old white male, who is ventilator dependent and has a history of sarcoidosis and a neuromuscular disease. He at this point needs bypass feeds and nutritional support. DESCRIPTION OF PROCEDURE After obtaining informed consent from the patient's mother, the patient who was on scheduled antibiotics and was brought to the operating room and after adequate general endotracheal anesthesia was obtained, had his abdomen prepped in a sterile fashion. The endoscope was placed through the mouth into the upper esophagus under direct vision. It was advanced to the second portion of the duodenum without difficulty with the lumen always in view. The duodenum was normal as was the duodenal bulb. The pylorus opened normally. There was no abnormality in the distal stomach and on retroflexion back to the GE junction, there was no abnormality seen proximally. At this point in time, the light was easily seen in the Unit #: [id number] #: [id number] Patient: MARIELENA LINO epigastric area of the abdomen. On palpation of this area, the digital depression was easily seen within the gastric lumen. An area was chosen for the PEG tube placement and was anesthetized with 1% Xylocaine plain local anesthesia and an 11-blade was used to make a small stab incision. A 16-gauge thin-walled needle was used to punch through the abdominal wall and gastric wall into the gastric lumen. A guidewire was threaded through the needle, grasped with a snare and pulled out through the mouth. The PEG tube was placed over the guidewire and pulled out and through the abdominal wall until the bolster came to rest against the gastric mucosa. The external bolster was placed into proper position, so that there was approximately 1/4-inch to 1/2-inch of slack between the two, so that there would not be ischemic necrosis between the 2 bolsters. At this point in time, the endoscope was placed back into the mouth, into the upper esophagus and into the stomach without difficulty with the lumen always in view. The bolster was in good position and there was good hemostasis. On pulling back above the GE junction, there was no stenosis, stricture, or neoplasm seen. The remaining portion of the esophagus was within normal limits. Laryngeal structures were not visualized due to the endotracheal tube. The scope was removed without difficulty. The patient tolerated the procedure well. Antibiotic ointment was placed in the PEG tube site as well as a split dressing and an abdominal binder. Dictated by... Guillermo Owen/keysha TD: 12/22/2016 02:59 JOB #: [id number] CC: Guillermo Anguiano M.D. [facility] OPERATIVE REPORT Page 1 of 1 X Brayan Lynch MD X PROCEDURE OPERATIVE NOTE
--- NOTE | ~2016-12-10 | FU ---
[facility] Nutrition Therapy DATE: 12/16/16 Patient: MARIELENA LINO Physician: MATILDE Address: [address] [facility] Room/Bed: [address], Zip: [place] [address] Admit Date: 12/10/16 Date of : [birth year] Height: 5 7 Weight: 249 113 NUTRITION MONITORING/FOLLOW-UP: Reason: Tube feed follow-up Anthropometrics: Ht: 5'7" Adm wt: 113.6 kg (250#) BMI: 39.2 Current wt: 113.2 kg (249#) Labs: Gluc 126, Creat 0.3, Alb 2.5, Phos 5.4 Meds: Zofran, Versed, Mg, K, Protonix I&O's: 2901/6991, last BM 12/15 Skin: Redness (BLE/thighs) Edema: Generalized (trace) Estimated Nutrition Needs: 3549-7457 kcal (15-20 kcal/kg) 114-136 g protein (1.0-1.2 g/kg) Assessment: Chart reviewed, events noted. Pt is currently awake and intubated in ICU. Pt has DHT and tolerating enteral nutrition support with Jevity 1.5 @ goal rate of 60 mL/hr + Prostat BID. Per pump history, pt received 96% of goal volume x 24 hrs. Questionable plans for PEG placement before d/c d/t dysphagia. Family at bedside, reported no diet questions at this time. See recommendations below. Dx: Inadequate oral intake RT dysphagia AEB HEAD BAGGAGE PORTER evaluation and family report, severe ~30-40# wt loss. -ACTIVE Intervention: 1. Enteral nutrition 2. HEAD BAGGAGE PORTER Monitoring, Evaluation and Goals: 1. Enteral nutrition; provide >80% of estimated needs and goal volume x 24 hrs -MET 2. Labs; WNL -IN PROGRESS 3. Weight; prevent unintentional weight loss -IN PROGRESS Recommendations: 1. Continue enteral nutrition support with Jevity 1.5 @ goal rate of 60 mL/hr + 30 mL Prostat BID. This will provide: 2360 kcal/ 121 g protein/ 1094 mL free H2O [facility] Therapy DATE: 12/16/16 Patient: MARIELENA LINO Physician: MATILDE Address: [address] [facility] Room/Bed: [address], Zip: [place] [address] Admit Date: 12/10/16 Date of : [birth year] Height: 5 7 Weight: 249 113 2. Once extubated, recommend HEAD BAGGAGE PORTER evaluation. Advance diet per HEAD BAGGAGE PORTER recommendations. Status: Pt is at a moderate nutritional risk. RD will f/u per protocol. Respectfully, Teressa Holden, Channel Account Manager Jarad Machado MS, RD, LD [facility] cc: client file
--- NOTE | ~2016-12-10 | HP ---
Unit #: [id number] #: [id number] Patient: MARIELENA LINO [id number] [facility]. [place], [place] [address] [id number] I MR#: [id number] NAME: MARIELENA LINO ROOM: 15274 Age: 41 Sex: M Admission Date: 12/10/2016 : 1975 Attending Physician: Luzma Lopez M.D. Primary Care Physician: No Primary Care Physician HISTORY AND PHYSICAL CHIEF COMPLAINT Breathing issue. HISTORY OF PRESENT ILLNESS The patient is a 41-year-old male with past medical history of sarcoidosis who presented to the emergency department for evaluation of the above. The patient states that he has had at least a week of increasing shortness of breath and difficulty swallowing. He reports an occasionally productive cough. He has had chills but no documented fever. He states that he is now having difficulty swallowing liquids and solids. He states that he feels "like stuff is getting stuck." He states that it is painful at times. He was seen at [facility] emergency department on December 06 and . On December 06, a video swallow study was done and showed tracheal aspiration with poor cough reflex following administration of thin liquids. Additionally, there was moderate luminal narrowing at C4-5 concerning for possible esophageal stricture. He was discharged home and told to follow up with GI. He returned to [facility] emergency department on December 08, 2016. He was given prednisone for possible sarcoidosis exacerbation. He presented today to the emergency department due to worsening symptoms. Upon arrival in the emergency department, temperature was 98.1, pulse 125, oxygen saturation 98% on room air. Laboratory notable for white blood cell count of 18.5. Chest x-ray shows patchy infiltrate left base concerning for aspiration. He was given 3 g of Unasyn. He was admitted for [facility] for evaluation and further treatment. The patient has had bronchoscopy at [facility] six years ago. He has never had endoscopy. PAST MEDICAL HISTORY 1. Multiple emergency room visits to [facility] within the past week. 2. Admission to [facility] September 24 through the 2009 for dyspnea. 3. Sarcoidosis, diagnosed in 2009. The patient has seen [facility] Pulmonary in the past but it has been more than five years ago. He is not on medication for sarcoid. He was started on steroids within the past week for possible sarcoidosis flare. PAST SURGICAL HISTORY 1. Bronchoscopy. 2. Right hand surgery. SOCIAL HISTORY Unit #: [id number] #: [id number] Patient: MARIELENA LINO The patient lives with his mom. He has been walking with a walker for the past week due to increasing generalized weakness. There is no tobacco or alcohol use. He works in a warehouse. FAMILY HISTORY Notable for his mother having hypothyroidism. ALLERGIES No known allergies. MEDICATIONS Home medications include prednisone. Home medications will need to be reviewed and verified. Prednisone was started within the last week. REVIEW OF SYSTEMS A complete review of systems is negative except as indicated in the HPI. The patient has lost at least 25 pounds over the past three weeks. The patient's mother also states that he had a fall on the ice about two years ago and she thinks that he has become progressively weak since that time. DIAGNOSTIC STUDIES CARDIOVASCULAR: EKG shows sinus tachycardia with a rate of 104 beats/minute. IMAGING: Chest x-ray shows patchy left base infiltrates. LABORATORY: Arterial blood gases shows pH of 7.424, pCO2 of 50.4, pO2 of 63.7 on room air. Troponin is less than 0.05. Complete blood count notable for white blood cell count of 18.5, hemoglobin and hematocrit 18.2 and 56.8 respectively. BNP is 21. Comprehensive metabolic panel notable for chloride of 98, glucose 131, ALT is 60. Lactic acid is 1.1. PHYSICAL EXAMINATION VITAL SIGNS: Temperature 98.1, pulse 125, respirations 18, blood pressure 134/96. Oxygen saturation is 98% on room air. GENERAL: The patient is a male who is awake and alert. HEENT: The head is atraumatic. Mucous membranes are dry. NECK: Supple. Trachea is midline. CARDIOVASCULAR: Regular rate and rhythm. LUNGS: Relatively clear to auscultation bilaterally with no increased work of breathing. ABDOMEN: Soft, nontender with bowel sounds present in all four quadrants. EXTREMITIES: Nontender with no pedal edema. NEURO: The patient is awake and alert. He follows commands. PSYCH: Mood and affect are normal. The patient is cooperative. SKIN: Skin of examined areas is warm and dry. ASSESSMENT The patient is a 41-year-old male with: 1. Aspiration pneumonia: The patient received Unasyn in the emergency department. 2. Sepsis with an initial lactic acid of 1.1. 3. Dysphagia for liquids and solids: The patient had an abnormal video swallow at [facility] on December 06 with findings concerning for tracheal aspiration with poor cough reflex and possible esophageal stricture. Unit #: [id number] #: [id number] Patient: MARIELENA LINO The patient has never had endoscopy. 4. History of sarcoidosis, recently started on prednisone. 5. Weight loss. PLAN 1. Admit to intermediate level. 2. NPO. 3. Normal saline at 125 mL/hour. 4. Blood cultures x2. 5. Sputum culture and sensitivity. 6. Procalcitonin level. 7. Unasyn IV pending further workup. 8. Supplemental oxygen. 9. Consult Dr. Garnica regarding aspiration pneumonia and history of sarcoidosis. 10. Get pathology report from [facility]. 11. P.r.n. Duo-Nebs. 12. Sepsis protocol with repeat lactic acid. 13. Serial cardiac enzymes. 14. Consult Dr. Solorzano regarding dysphagia and aspiration. 15. TSH. 16. PT/OT to evaluate and treat. 17. Fall precautions. 18. Protonix. 19. Repeat labs in the morning. 20. SCDs for DVT prophylaxis. 21. Additional workup and consultants based on above. Dictated by Luzma Lopze M.D. REYNA/gracie TD: 12/11/2016 10:14 JOB #: [id number] HISTORY AND PHYSICAL Page 1 of 1 X Luzma Lopez MD X HISTORY AND PHYSICAL
--- NOTE | ~2016-12-10 | CR72 ---
[facility] A Service of [facility] & [facility] RADIOLOGY TEXT RESULTS PATIENT: MARIELENA LINO LOCATION: [address] : [birth year] UNIT #: [id number] AGE: [address]: Shae Amaya MD SEX: M ORDER DR: [id number] [facility] [address] [facility]. [place], [place] [address] [id number] I MR#: [id number] Acc #: [id number] NAME: MARIELENA LINO : 1975 SEX: M STUDY DATE/TIME: 12/17/2016 4:27 UNIT: [facility] ROOM: [facility] STUDY DESCRIPTION: CR Chest Single View Portable Attending Physician: Shae Amaya M.D. Ordering Physician: Kameron Garnica M.D. Primary Care Physician: No Primary Care Physician MEDICAL IMAGING REPORT This report is preliminary unless electronic signature is present EXAM AP portable chest 12/17/2016. HISTORY Respiratory failure. Patient on ventilator. Follow up cardiopulmonary status. TECHNIQUE AP portable chest x-ray. FINDINGS The exam shows no change since yesterday. Endotracheal tube, right arm PICC and Dobbhoff feeding tube remain in good position. Low lung volumes. Elevation right hemidiaphragm. Mild bibasilar atelectasis. IMPRESSION Stable portable chest radiograph, unchanged since yesterday. Dictated by... Jakob Haines M.D. THIS IS AN ELECTRONICALLY VERIFIED REPORT Jakob Haines M.D. at 12/17/2016 5:58 AM MATIAS/chas TD: 12/17/2016 04:59 JOB #: [id number] MEDICAL IMAGING REPORT Page 1 of 1 COPY
--- NOTE | ~2016-12-10 | CR72 ---
[facility] A Service of [facility] & [facility] RADIOLOGY TEXT RESULTS PATIENT: MARIELENA LINO LOCATION: [address] : [birth year] UNIT #: [id number] AGE: [address]: Shae Amaya MD SEX: M ORDER DR: [id number] [facility] [address] [facility]. [place], [place] [address] [id number] I MR#: [id number] Acc #: [id number] NAME: MARIELENA LINO : 1975 SEX: M STUDY DATE/TIME: 12/14/2016 4:20 UNIT: [facility] ROOM: [facility] STUDY DESCRIPTION: CR Chest Single View Portable Attending Physician: Shae Amaya M.D. Ordering Physician: Kameron Garnica M.D. Primary Care Physician: Primary Care Physician No MEDICAL IMAGING REPORT This report is preliminary unless electronic signature is present EXAM Portable chest INDICATIONS Respiratory failure. Endotracheal tube. Follow up endotracheal tube. FINDINGS Today's portable view of the chest is compared with one from yesterday. The endotracheal tube and Dobbhoff tube are in good position. There are low lung volumes with mild right base atelectasis. Dictated by... Demetrio Olivo M.D. THIS IS AN ELECTRONICALLY VERIFIED REPORT Demetrio Olivo M.D. at 12/14/2016 2:21 PM VITA/gamaliel TD: 12/14/2016 06:30 JOB #: [id number] MEDICAL IMAGING REPORT Page 1 of 1 COPY
--- NOTE | ~2016-12-10 | CT57 ---
[facility] A Service of [facility] RADIOLOGY TEXT RESULTS PATIENT: MARIELENA LINO LOCATION: CICCU2 CICCU2-03 : [birth year] UNIT #: [id number] AGE: [address]: Shae Amaya MD SEX: M ORDER DR: [id number] [facility]. [place], [place] [address] [id number] I MR#: [id number] Acc #: [id number] NAME: MARIELENA LINO : 1975 SEX: M STUDY DATE/TIME: 12/12/2016 15:06 UNIT: [facility] ROOM: [facility] STUDY DESCRIPTION: CT Chest Wo Cont Attending Physician: Shae Amaya M.D. Ordering Physician: Kati Gomez M.D. Primary Care Physician: Primary Care Physician No MEDICAL IMAGING REPORT This report is preliminary unless electronic signature is present EXAM CT of the chest without contrast INDICATIONS 41-year-old male with shortness breath and difficulty breathing for [address] chest performed without contrast. Coronal and sagittal reformatted images were obtained. This CT exam was performed with one or more of the following radiation dose reduction techniques: automatic exposure control, adjustment of mA and/or kV according to patient size, and iterative reconstruction. COMPARISON 09/12/2009 FINDINGS There is dense consolidation in the left lower lobe most suggestive of pneumonia. There is low-density material within the right mainstem bronchus suspected to represent a large mucous plug. There is associated near complete atelectasis of the right lung and there may be some coexistent pneumonia as well. There is a very small right-sided pleural effusion. Limited imaging in the upper abdomen demonstrates fatty infiltration of the liver. The bone windows are unremarkable. IMPRESSION 1. There is a consolidation in the left lower lobe most suspicious of pneumonia. 2. There is low density material in the right mainstem bronchus suspected to represent a large mucous plug and there is associated near complete atelectasis of the right lung and there may be [facility] A Service of [facility] RADIOLOGY TEXT RESULTS PATIENT: MARIELENA LINO LOCATION: [facility] CICCU2-03 : [birth year] UNIT #: [id number] AGE: [address]: Shae Amaya MD SEX: M ORDER DR: superimposed pneumonia. Dictated by... Barney Morales M.D. THIS IS AN ELECTRONICALLY VERIFIED REPORT Barney Morales M.D. at 12/13/2016 2:02 PM ARS/to TD: 12/12/2016 18:21 JOB #: [id number] MEDICAL IMAGING REPORT Page 1 of 1 COPY
--- NOTE | ~2016-12-10 | CR72 ---
[facility] A Service of [facility] & [facility] RADIOLOGY TEXT RESULTS PATIENT: MARIELENA LINO LOCATION: [address] : [birth year] UNIT #: [id number] AGE: [address]: Shae Amaya MD SEX: M ORDER DR: [id number] [facility] [address] [facility]. [place], [place] [address] [id number] I MR#: [id number] Acc #: [id number] NAME: MARIELENA LINO : 1975 SEX: M STUDY DATE/TIME: 12/22/2016 5:36 UNIT: [facility] ROOM: [facility] STUDY DESCRIPTION: CR Chest Single View Portable Attending Physician: Shae Amaya M.D. Ordering Physician: Kameron Garnica M.D. Primary Care Physician: Primary Care Physician No MEDICAL IMAGING REPORT This report is preliminary unless electronic signature is present EXAM AP portable chest 12/22/2016 HISTORY Pneumonia. Follow up inpatient cardiopulmonary status. TECHNIQUE AP portable chest x-ray. FINDINGS The examination is unchanged since yesterday following tracheostomy tube placement. Lung volumes remain very low with chronic elevation right hemidiaphragm. Infiltrate or atelectasis in both lung bases. PICC in good position. IMPRESSION Stable portable chest radiograph without significant change since yesterday. Dictated by... Jakob Haines M.D. THIS IS AN ELECTRONICALLY VERIFIED REPORT Jakob Haines M.D. at 12/22/2016 10:18 PM MATIAS/duane TD: 12/22/2016 07:06 JOB #: [id number] MEDICAL IMAGING REPORT Page 1 of 1 COPY
--- NOTE | ~2016-12-10 | MR18 ---
[facility] A Service of [facility] RADIOLOGY TEXT RESULTS PATIENT: MARIELENA LINO [facility] : 75 UNIT #: [id number] AGE: [address]: Shae Amaya MD SEX: M ORDER DR: [id number] [facility]. [place], [place] [address] [id number] I MR#: [id number] Acc #: [id number] NAME: MARIELENA LINO : 1975 SEX: M STUDY DATE/TIME: 12/12/2016 20:39 UNIT: [facility] ROOM: [facility] STUDY DESCRIPTION: MR Brain Wo Contrast Attending Physician: Shae Amaya M.D. Ordering Physician: Shae Amaya M.D. Primary Care Physician: Primary Care Physician No MRI CENTER REPORT This report is preliminary unless electronic signature is present. EXAM Brain MRI HISTORY Aphasia and difficulty breathing, onset 12/10/2016 accompanied by generalized muscular weakness. Chronic history of sarcoidosis. TECHNIQUE Multiplanar imaging of the brain was performed with short and long TR. FINDINGS On diffusion weighted imaging there is no evidence of abnormal restricted diffusion to suggest a recent infarct. The routine brain images show normal ventricular size. No white matter signal abnormalities are seen. No masses are noted. The temporal lobes are symmetric. Extraaxial structures are unremarkable. IMPRESSION Negative brain MRI Dictated by... Gonzalo Falcon M.D. THIS IS AN ELECTRONICALLY VERIFIED REPORT Gonzalo Falcon M.D. at 12/13/2016 3:47 PM RLF/latasha TD: 12/13/2016 07:58 JOB #: [id number] MRI CENTER REPORT [facility] A Service [facility] RADIOLOGY TEXT RESULTS PATIENT: MARIELENA LINO [facility]: [facility] : 75 UNIT #: [id number] AGE: [address]: Shae Amaya MD SEX: M ORDER DR: Page 1 of 1 COPY
--- NOTE | ~2016-12-10 | CR63 ---
[facility] A Service of [facility] RADIOLOGY TEXT RESULTS PATIENT: MARIELENA LINO LOCATION: [facility] 466-01 : 75 UNIT #: [id number] AGE: [address]: Shae Amaya MD SEX: M ORDER DR: [id number] [facility] [address] [place], [place] [address] [id number] I MR#: [id number] Acc #: [id number] NAME: MARIELENA LINO : 1975 SEX: M STUDY DATE/TIME: 12/12/2016 13:34 UNIT: [facility] ROOM: [facility] STUDY DESCRIPTION: CR Chest 2 View Attending Physician: Shae Amaya M.D. Ordering Physician: Kameron Garnica M.D. Primary Care Physician: No Primary Care Physician MEDICAL IMAGING REPORT This report is preliminary unless electronic signature is present EXAM Chest x-ray 12/12/2016. HISTORY 41-year-old male with history of aspiration pneumonia. Short of air. Follow up inpatient cardiopulmonary status. TECHNIQUE AP and lateral upright chest series. FINDINGS The examination shows complete atelectasis of the right lung with opacification of the right hemithorax and tracheal deviation from left to right. Central airway obstruction, likely due to mucous plugging, should be considered. Stat report telephoned to the patient's nurse at the time of this dictation. Persistent mild infiltrate or atelectasis, left lung base. Left mid and upper lung remain clear. No pneumothorax. IMPRESSION 1. Complete right lung collapse, new since 12/10/2016. Consider bronchoscopy for evaluation of central mucus plug. 2. Persistent mild infiltrate or atelectasis, left base. STAT * RESULT Dictated by... Jakob Haines M.D. THIS IS AN ELECTRONICALLY VERIFIED REPORT Jakob Haines M.D. at 12/12/2016 3:54 PM [facility] A Service of [facility] & [facility] RADIOLOGY TEXT RESULTS PATIENT: MARIELENA LINO LOCATION: [facility] 466-01 : 75 UNIT #: [id number] AGE: [address]: Shae Amaya MD SEX: M ORDER DR: Wendy TD: 12/12/2016 14:48 JOB #: [id number] MEDICAL IMAGING REPORT Page 1 of 1 COPY
--- NOTE | ~2016-12-10 | CO ---
Unit #: [id number] #: [id number] Patient: MARIELENA LOGAN [id number] [place], [place] [address] [id number] I MR#: [id number] NAME: MARIELENA LOGAN ROOM: 466 Age: 41 Sex: M Admission Date: 12/10/2016 : 1975 Attending Physician: Luzma Lopez M.D. Consultation Date: 12/11/2016 CONSULTATION REPORT REASON FOR CONSULTATION Pneumonia. HISTORY OF PRESENT ILLNESS This is a 41-year-old gentleman who carries a diagnosis of sarcoidosis followed by [facility]. He has had a 1-week history of some increased shortness of breath, mucoid sputum production, no documented fever. He also has had some difficulty with swallowing. He mentions that food gets stuck to the ER physician. Apparently, he had an encounter at [facility] and had a modified barium swallow on 12/06/2016, which revealed aspiration with poor cough reflex with thin liquids. PAST MEDICAL HISTORY Remarkable for sarcoidosis diagnosed in the remote past, apparently treated with steroids, details unclear. History of chronic right hemidiaphragm elevation, history of possible thin liquid aspiration. He denies diabetes, hypertension, heart disease, or cancer. MEDICATIONS At home, no official med rec sheet. There is mention of Combivent inhaler, Levaquin, and prednisone on the ER face sheet. He currently has been prescribed Unasyn, Protonix, IV fluids. ALLERGIES No known medical allergies. SOCIAL HISTORY Does not smoke. Works in a warehouse. Does not drink alcohol. FAMILY HISTORY No familial lung disease. REVIEW OF SYSTEMS No fever, chills, weight loss. No wheezing or hemoptysis. No chest pain or palpitations. He does have this difficulty swallowing. No melena, hematochezia, hematuria, dysuria, focal weakness, paresthesias. PHYSICAL EXAMINATION GENERAL: Reveals a patient who is in no acute distress. VITAL SIGNS: He is afebrile. Pulse 98, respiratory rate is 25, blood pressure is 119/85. He is 5 feet 7 inches and 250 pounds. BMI is 39. HEENT: Pupils equal, round, and reactive to light. Sclerae anicteric. Head atraumatic. NECK: Supple. No supraclavicular or cervical adenopathy appreciated. Unit #: [id number] #: [id number] Patient: MARIELENA LOGAN Mucous membranes moist. CHEST: Fairly clear. Mild decreased breath sounds, but no wheeze, stridor, or consolidation. CARDIAC: Reveals regular rate and rhythm. No pathologic murmur, rub, or gallop. ABDOMEN: Soft and nontender. No hepatomegaly or rebound. EXTREMITIES: Reveal no clubbing, cyanosis, or edema. No calf tenderness. SKIN: Warm and dry without rash or diaphoresis. NEUROLOGIC: Grossly intact. No focal motor or sensory deficits. DIAGNOSTIC STUDIES IMAGING STUDIES: Chest x-ray, right hemidiaphragm elevation and infiltrate in left lower lobe. LABORATORY RESULTS: Arterial blood gas; pH is 7.42, pCO2 of 50, pO2 of 63 that was on room air. His BUN is 16, creatinine is 0.4. BNP is 21. Lactic acid is 1.1. Procalcitonin 0.4. Cardiac enzymes negative. White blood cell count was 18.5, now 10.8, remainder of CBC is essentially normal. Blood cultures performed and are pending. CARDIOVASCULAR STUDIES: EKG; sinus rhythm, nonspecific ST-T wave changes primarily inferiorly. IMPRESSION 1. Aspiration pneumonia, clinically better with decreased white blood cell count. 2. Chronic right hemidiaphragm elevation. 3. [facility] 4. Dysphagia. 5. Possible aspiration of thin liquids. PLAN Agree with antibiotics, possibly change to oral Augmentin in the morning. GI has been scheduled to see. He also should have speech therapy evaluate him for possible aspiration. Thank you very much for allowing me to participate in the care of Mr. Logan. Dictated by... Kameron Garnica M.D. JOSHUA/keysha TD: 12/12/2016 03:59 JOB #: [id number] CONSULTATION REPORT Page 1 of 1 X Kameron Garnica MD CONSULTATION REPORT
--- NOTE | ~2016-12-10 | EKG ---
PATIENT: MARIELENA LINO UNIT #: [id number] Ventricular Rate: 104 BPM Atrial Rate: 104 BPM P-R Interval: 122 ms QRS Duration: 86 ms Q-T Interval: 330 ms QTC Calculation(Bezet): 433 ms P [place]: 11 degrees Calculated R [place]: 26 degrees Calculated T [place]: -13 degrees Diagnosis Line: Sinus tachycardia Diagnosis Line: Possible Left atrial enlargement Diagnosis Line: T wave abnormality, consider inferior ischemia Diagnosis Line: Abnormal ECG Diagnosis Line: When compared with ECG of 24-SEP-2009 14:11, Diagnosis Line: No significant change was found Diagnosis Line: Confirmed by NADINE CASTORENA MD ([id number]) on 12/11/2016 Diagnosis Line: 7:20:11 AM INTERPRETING MD: RAFFAELE ORNELAS
--- NOTE | ~2016-12-10 | CR72 ---
[facility] A Service of [facility] & [facility] RADIOLOGY TEXT RESULTS PATIENT: MARIELENA LINO LOCATION: [address] : 75 UNIT #: [id number] AGE: [address]: Shae Amaya MD SEX: M ORDER DR: [id number] [facility] [address]. [place], [place] [address] [id number] I MR#: [id number] Acc #: [id number] NAME: MARIELENA LINO : 1975 SEX: M STUDY DATE/TIME: 12/15/2016 4:20 UNIT: [facility] ROOM: [facility] STUDY DESCRIPTION: CR Chest Single View Portable Attending Physician: Shae Amaya M.D. Ordering Physician: Kameron Garnica M.D. Primary Care Physician: Primary Care Physician No MEDICAL IMAGING REPORT This report is preliminary unless electronic signature is present EXAM Portable chest INDICATION Respiratory failure, follow up endotracheal tube. FINDINGS Today's portable view of the chest shows no change from yesterday's study. The endotracheal tube, PIC catheter and Dobbhoff tube are in good position. The right hemidiaphragm is elevated with right base and mild left base atelectasis. Dictated by... Demetrio Olivo M.D. THIS IS AN ELECTRONICALLY VERIFIED REPORT Demetrio Olivo M.D. at 12/15/2016 2:14 PM VITA/duane TD: 12/15/2016 06:07 JOB #: [id number] MEDICAL IMAGING REPORT Page 1 of 1 COPY
--- NOTE | ~2016-12-10 | CR72 ---
[facility] A Service of [facility] RADIOLOGY TEXT RESULTS PATIENT: MARIELENA LINO LOCATION: [address] : [birth year] UNIT #: [id number] AGE: [address]: Shae Amaya MD SEX: M ORDER DR: [id number] [facility] [address]. [place], [place] [address] [id number] I MR#: [id number] Acc #: [id number] NAME: MARIELENA LINO : 1975 SEX: M STUDY DATE/TIME: 12/13/2016 14:41 UNIT: [facility] ROOM: [facility] STUDY DESCRIPTION: CR Chest Single View Portable Attending Physician: Shae Amaya M.D. Ordering Physician: Kameron Garnica M.D. Primary Care Physician: No Primary Care Physician MEDICAL IMAGING REPORT This report is preliminary unless electronic signature is present EXAM Portable chest, 1 view, 12/13/2016 at 14:41 COMPARISON 12/13/2016, 07:04 HISTORY Respiratory distress requiring intubation. FINDINGS ET tube present, tip 3 cm above the chichi. Dobbhoff feeding tube present, as well, distal tip not seen. At least moderate right effusion, though it appears slightly smaller than on the chest radiograph of 07:04 a.m. There is bilateral vascular congestion, which appears slightly worse. Dictated by... Semaj Peters M.D. THIS IS AN ELECTRONICALLY VERIFIED REPORT Semaj Peters M.D. at 12/15/2016 1:53 PM MANA/genia TD: 12/13/2016 17:22 JOB #: [id number] MEDICAL IMAGING REPORT Page 1 of 1 COPY
--- NOTE | ~2016-12-10 | CR72 ---
[facility] A Service of [facility] RADIOLOGY TEXT RESULTS PATIENT: MARIELENA LINO LOCATION: [address] : 75 UNIT #: [id number] AGE: [address]: Shae Amaya MD SEX: M ORDER DR: [id number] [place], [place] [address] [id number] I MR#: [id number] Acc #: [id number] NAME: MARIELENA LINO : 1975 SEX: M STUDY DATE/TIME: 12/16/2016 4:02 UNIT: [facility] ROOM: [facility] STUDY DESCRIPTION: CR Chest Single View Portable Attending Physician: Shae Amaya M.D. Ordering Physician: Kameron Garnica M.D. Primary Care Physician: Primary Care Physician No MEDICAL IMAGING REPORT This report is preliminary unless electronic signature is present EXAM Single view chest INDICATION Aspiration. Pneumonia. Dysphasia. Weakness. FINDINGS Single portable AP view of the chest compared to 12/15/2016 and 12/14/2016. Endotracheal and right PICC remain in place. Enteric tube is in place. Heart and mediastinal contours are unchanged. Right hemidiaphragm is elevated. No pneumothorax. IMPRESSION No interval change. Dictated by... Sivakumar Mg M.D. THIS IS AN ELECTRONICALLY VERIFIED REPORT Sivakumar Mg M.D. at 12/16/2016 8:08 AM PAVITHRA/duane TD: 12/16/2016 07:17 JOB #: [id number] MEDICAL IMAGING REPORT Page 1 of 1 COPY
--- NOTE | ~2016-12-10 | OR ---
Unit #: [id number] #: [id number] Patient: MARIELENA LINO [id number] [address] [address] [id number] I MR#: [id number] NAME: MARIELENA LINO ROOM: [facility] Date of Procedure: 12/21/2016 Admission Date: 12/10/2016 Surgeon: Brayan Lynch M.D. : 1975 Attending Physician: Shae Amaya M.D. OPERATIVE REPORT PREOPERATIVE DIAGNOSIS Ventilator dependent. POSTOPERATIVE DIAGNOSIS Ventilator dependent. PROCEDURE PERFORMED Placement of #8 Shiley cuffed tracheostomy tube. ANESTHESIA General endotracheal anesthesia. FINDINGS The tracheostomy tube was placed into good position with good end-tidal CO2 and good oxygenation. SPECIMENS None. COMPLICATIONS None apparent. CONDITION The patient tolerated the procedure well. INDICATIONS FOR PROCEDURE The patient is a 41-year-old white male, who presents at this time for tracheostomy tube placement. He is currently ventilator dependent with a diagnosis of sarcoidosis and a neuromuscular disorder. He presents at this time for placement of tracheostomy tube. DESCRIPTION OF PROCEDURE After obtained informed consent from the patient's mother as well as receiving scheduled antibiotics, the patient was brought to the operating room and after adequate general endotracheal anesthesia was obtained, had a roll placed under shoulders and his head and neck gently hyperextended, but well supported. His chin, neck, and chest were prepped and draped in a sterile fashion. A curvilinear incision was made in the base of the neck with a knife and taken down through the subdermal tissues and subcutaneous tissues with the electrocautery. The small flap was raised superiorly and other inferiorly with good hemostasis. The strap muscles Unit #: [id number] #: [id number] Patient: MARIELENA LINO were in the midline with good hemostasis. The trachea was able to be identified and the patient had an isthmus of his thyroid right where tracheostomy tube needed to be placed. Feeding vessels were taken with micro-clips and the isthmus was divided with good hemostasis using the electrocautery. It was dissected off to the side on either side. The second tracheal ring was chosen. A 3-0 Prolene pull-up sutures placed on either side of the trachea around the second tracheal ring. These were tagged. An 11-blade was used to cut a small square out of the anterior surface of the second tracheal ring. The trach driller's offsider was used to enlarge this opening. A trach hook was used to stabilize the trachea. A #8 cuffed Shiley endotracheal tube was placed into proper position. End-tidal CO2 was normal indicating good position and the patient had good oxygenation. At this point in time, the skin on either side was closed with interrupted 3-0 nylon vertical mattress sutures. The flange of the tracheostomy tube was sutured to the skin on all 4 corners. A split dressing was placed underneath the flange. A trach tape was used to tie in securely the tracheostomy. Needle counts, sponge counts, and instrument counts were all correct as reported by the scrub nurse x2. The patient went from the operating room to recovery room in stable condition. Dictated by... Guillermo Owen/keysha TD: 12/22/2016 01:58 JOB #: [id number] CC: Roxana Leyva M.D. [facility] OPERATIVE REPORT Page 1 of 1 X Brayan Lynch MD X PROCEDURE OPERATIVE NOTE
--- NOTE | ~2016-12-10 | OR ---
Unit #: [id number] #: [id number] Patient: MARIELENA LINO [id number] [address] [place], [place] [address] [id number] MR#: [id number] NAME: MARIELENA LINO ROOM: [facility] Date of Procedure: 12/13/2016 Admission Date: 12/10/2016 Surgeon: Kameron Garnica M.D. : 1975 Attending Physician: Shae Amaya M.D. OPERATIVE REPORT PROCEDURE PERFORMED Flexible fiberoptic bronchoscopy. INDICATIONS FOR PROCEDURE Virtual total opacification, right hemithorax consistent with mucus plugs. FINDINGS Copious mucus plugging in the right mainstem, some more semisolid fragments, possibly pill fragments removed as well. SEDATION Ventilator sedation per sedation protocol. COMPLICATIONS None. DESCRIPTION OF PROCEDURE The patient was in the intensive care unit room #3, orally intubated. Bronchoscope was introduced after instillation of approximately 4 mL of lidocaine. Mucus was encountered in the distal trachea and right mainstem. It was removed over a fairly lengthy period of time with repeated suctioning. The bronchoscope was removed multiple times to allow adequate ventilation. There were somewhat semisolid white fragments, which could have been pill fragments. No tumor was identified. Virtually, all of the mucus was removed. All subsegments were identified. Left-sided airways were not entirely visualized because of critical condition. Bronchoscope was removed finally without difficulty and the patient was in stable condition postprocedure. Dictated by... Guillermo Anguiano/keysha TD: 12/14/2016 02:38 JOB #: [id number] Unit #: [id number] #: [id number] Patient: MARIELENA LINO OPERATIVE REPORT Page 1 of 1 X Kameron Garnica MD X PROCEDURE OPERATIVE NOTE
--- NOTE | ~2016-12-10 | TOC ---
Unit #: [id number] #: [id number] Patient: MARIELENA LOGAN [id number] [address] [address] [id number] I MR#: [id number] NAME: MARIELENA LOGAN ROOM: [facility] Age: 41 Sex: M Admission Date: 12/10/2016 : 1975 Attending Physician: Shae Amaya M.D. Primary Care Physician: No Primary Care Physician TRANSFER OF CARE SUMMARY PRINCIPAL DIAGNOSES 1. Acute hypercapnic hypoxic respiratory failure secondary to #2. 2. Neuromuscular weakness with pending workup. 3. Right-sided aspiration pneumonia. 4. Severe pharyngeal dysphagia secondary to neuromuscular weakness. 5. Right-sided mucus plugging, status post bronchoscopy. 6. Esophagitis. 7. Sarcoidosis. 8. Moderate protein malnutrition. 9. Hypophosphatemia, resolved. 10. Severe physical deconditioning. CONSULTANTS 1. Dr. Garnica, pulmonology. 2. Dr. Gomez, neurology. 3. Dr. Solorzano. PROCEDURES 1. Bronchoscopy on December 13, 2016 with findings of mucous plugging of the right mainstem bronchus, semisolid white fragments were noted as well which may represent pill fragments. 2. EGD on December 10, 2016 with [id number] distal erosive esophagitis, prepyloric antral erosive gastritis noted. Duodenum was normal. 3. CT of the chest without contrast on December 12, 2016 with consolidation of the left lower lobe. Low density material in the right mainstem bronchus representing a large mucous plug, associated atelectasis of right lower lobe, plus or minus pneumonia noted. 4. MRI of the brain without contrast on December 12, 2016 which was negative. 5. MRI of cervical spine without contrast on December 12, 2016 with minimal disc bulging to the right of midline at C3-4. Cervical cord is normal. No evidence of marrow edema. Atrophy of paraspinous muscles noted. 6. Multiple follow-up chest x-rays demonstrating improving right-sided infiltrate. CLINICAL HISTORY AND HOSPITAL COURSE Mr. Logan is a nice 41-year-old male with increasing shortness of breath and difficulty swallowing. Please refer to H and P for further details. Oxygenation was normal upon presentation however patient as found to have an elevated white blood cell count of 18.5 and chest x-ray revealed left basilar infiltrate. Patient was subsequently admitted. Unit #: [id number] #: [id number] Patient: MARIELENA LOGAN Patient was placed on broad-spectrum antibiotics, particularly those to cover aspiration and Dr. Garnica was consulted. Patient clinically improved with the administration of antibiotics. However, he had been having progressive dysphagia for a week as an outpatient with an abnormal video swallow study at [facility] on December 08. A repeat video swallow study on December 12 revealed a complete loss of pharyngeal muscle function. Patient subsequently clinically declined and was transferred to the unit. CT scan of the chest done just before clinical decline revealed significant plugging of the right mainstem bronchus and subsequently patient underwent bronchoscopy with removal of a large amount of mucous plugs and pill contents. After discussion with the patient's family, patent has ultimately been intubated primarily for airway protection due to a significant muscular weakness. Aspiration pneumonia has resolved and he is being maintained on Zosyn for now. In regard to the patient's significant muscle weakness, Neurology was consulted. MRI of the brain and the cervical spine were negative. Serologic markers for myasthenia gravis are currently pending. Patient has been empirically started on Mestinon in addition to IVIG given he has had a rather chronic progressive development of weakness indicating this might represent an underlying LEMS versus CIDP versus other. Neurology will continue to follow. As an outpatient patient will require EMG nerve conduction studies and perhaps LP depending on results of myasthenia gravis testing. Again patient currently has Dobbhoff and is being fed via this tube. After discussion with family, we have opted to reevaluate swallow following extubation and if patient continues to have significant dysphagia he will undergo PEG tube placement. Upon admission Dr. Solorzano was consulted given complaints of difficulty swallowing and patient underwent EGD with findings of esophagitis. However, it appears now his difficulty swallowing is muscular in origin and he will just be continued on PPI therapy. Further hospital course to be dictated as an addendum. Dictated by... Shae Amaya M.D. LEANNE/laura TD: 12/16/2016 15:50 JOB #: [id number] Unit #: [id number] #: [id number] Patient: MARIELENA LOGAN TRANSFER OF CARE SUMMARY Page 1 of 1 X Shae Amaya MD TRANSFER OF CARE SUMMARY
--- NOTE | ~2016-12-10 | CR72 ---
[facility] A Service of [facility] RADIOLOGY TEXT RESULTS PATIENT: MARIELENA LINO LOCATION: [address]03 : [birth year] UNIT #: [id number] AGE: [address]: Shae Amaya MD SEX: M ORDER DR: [id number] [facility] [address] [facility]. [place], [place] [address] [id number] I MR#: [id number] Acc #: [id number] NAME: MARIELENA LINO : 1975 SEX: M STUDY DATE/TIME: 12/13/2016 7:04 UNIT: [facility] ROOM: [facility] STUDY DESCRIPTION: CR Chest Single View Portable Attending Physician: Shae Amaya M.D. Ordering Physician: Shae Amaya M.D. Primary Care Physician: Primary Care Physician No MEDICAL IMAGING REPORT This report is preliminary unless electronic signature is present EXAM Portable chest 1-view, 12/13/2016 COMPARISON 12/12/2016 HISTORY Short of air for 1 week. FINDINGS Redemonstrated large right effusion with near complete opacification of the right hemithorax though there is a small area of right apical aeration which has improved since 12/12. There is no pneumothorax. There is mild opacity at the left base which is probably a small effusion and atelectasis. That is unchanged since the prior exam. Dictated by... Semaj Peters M.D. THIS IS AN ELECTRONICALLY VERIFIED REPORT Semaj Peters M.D. at 12/13/2016 3:52 PM MANA/evangelist TD: 12/13/2016 08:08 JOB #: [id number] MEDICAL IMAGING REPORT Page 1 of 1 COPY
[2016-12-10 15:12] LABS: ARTERIAL BLD GAS O2 SATURATION 91.6 % (90.0-100.0); ARTERIAL BLOOD GAS CARBOXY HB 0.7 %sat (0.0-9.0); ARTERIAL BLOOD GAS MET HB 0.6 %sat (0.0-2.0); ARTERIAL BLOOD GAS pH 7.424 (7.350-7.450)
[2016-12-10 15:13] LABS: ARTERIAL BLOOD GAS ALLEN TEST NORMAL; ARTERIAL BLOOD GAS ART SITE LEFT RADIAL; ARTERIAL BLOOD GAS PCO2 50.4 mmHg (35.0-45.0); ARTERIAL BLOOD GAS PO2 63.7 mmHg (80.0-100); ARTERIAL DRAW? YES
[2016-12-10 15:17] LABS: POC - CKMB 8.6 ng/mL (0.0-7.9); POC - TROPONIN <0.05 ng/mL (<=0.05)
[2016-12-10 15:24] LABS: BASOPHIL% 0.3 % (0-2.5); EOSINOPHIL% 0.2 % (0.0-7.0); HEMATOCRIT 56.8 % (38.0-50.0); HEMOGLOBIN 18.2 gm/dL (13.0-16.0); LYMPHOCYTE# 1.8 X10e3 (1.0-3.5); LYMPHOCYTE% 9.5 % (17.0-45.0); MEAN CELL VOLUME 88.5 FL (83-96); MEAN CORPUSCULAR HEMOGLOBIN 28.3 PG (28-34); MEAN PLATELET VOLUME 10.8 FL (6.5-11.5); MONOCYTE# 1.4 X10e3 (0-1.0); MONOCYTE% 7.7 % (3.0-12.0); NEUTROPHIL# 15.2 X10e3 (1.5-7.1); NEUTROPHIL% 82.3 % (40-75); PLATELET COUNT 259 X10e3 (140-420); RED BLOOD COUNT 6.42 X10e (3.90-5.60); WHITE BLOOD COUNT 18.5 X10e3 (4.0-10.5)
[2016-12-10 15:25] LABS: DIFF IND YES
[2016-12-10 15:34] LABS: ANISOCYTOSIS SL; PLATELET ESTIMATE NORMAL (NORMAL); POIKILOCYTOSIS SL
[~2016-12-10 15:40] MED LIST: AMOXICILLIN PO; COMBIVENT INH14.7 GM INH; LEVAQUIN PO
[2016-12-10 16:03] LABS: ALBUMIN SERUM 4.4 g/dL (3.5-5.0); BILIRUBIN, DIRECT 0.2 mg/dL (0.0-0.2); BILIRUBIN,INDIRECT 0.8 mg/dL (0.0-0.9); CALCIUM SERUM 10.1 mg/dL (8.4-10.2); CREATININE SERUM 0.4 mg/dL (0.6-1.4); GLOM FILT RATE Estimated 147.6 mL/min (>60); POTASSIUM 4.7 mmol/L (3.5-5.1); PROTEIN TOTAL SERUM 8.2 g/dL (6.0-8.3)
[2016-12-10 22:04] LABS: %MB 16.8 % (0.0-4.0); MB 10.1 ng/ml
[2016-12-11 03:24] LABS: CK TOTAL 56 IU/L (36-174)
[2016-12-11 05:37] LABS: HEMATOCRIT 49.9 % (38.0-50.0); MEAN CELL VOLUME 88.7 FL (83-96); MEAN CORPUSCULAR HEMOGLOBIN 28.5 PG (28-34); MEAN CORPUSCULAR HGB CONC 32.1 g/dL (30-36); RED BLOOD COUNT 5.62 X10e (3.90-5.60); RED CELL DISTRIBUTION WIDTH 15.4 % (11.0-15.5); WHITE BLOOD COUNT 10.8 X10e3 (4.0-10.5)
[2016-12-11 06:19] LABS: ALBUMIN SERUM 3.4 g/dL (3.5-5.0); BILIRUBIN,TOTAL 0.8 mg/dL (0.2-2.0); CREATININE SERUM 0.4 mg/dL (0.6-1.4); GLOM FILT RATE Estimated 147.6 mL/min (>60); POTASSIUM 4.5 mmol/L (3.5-5.1); PROTEIN TOTAL SERUM 6.5 g/dL (6.0-8.3)
[2016-12-12 04:14] LABS: BASOPHIL% 0.2 % (0-2.5); EOSINOPHIL% 0.3 % (0.0-7.0); HEMATOCRIT 50.9 % (38.0-50.0); LYMPHOCYTE# 0.7 X10e3 (1.0-3.5); LYMPHOCYTE% 5.1 % (17.0-45.0); MEAN CELL VOLUME 89.8 FL (83-96); MEAN CORPUSCULAR HEMOGLOBIN 28.3 PG (28-34); MEAN CORPUSCULAR HGB CONC 31.5 g/dL (30-36); MEAN PLATELET VOLUME 10.8 FL (6.5-11.5); MONOCYTE# 0.7 X10e3 (0-1.0); MONOCYTE% 5.3 % (3.0-12.0); NEUTROPHIL# 12.3 X10e3 (1.5-7.1); NEUTROPHIL% 89.1 % (40-75); PLATELET COUNT 233 X10e3 (140-420); RED BLOOD COUNT 5.67 X10e (3.90-5.60); WHITE BLOOD COUNT 13.8 X10e3 (4.0-10.5)
[2016-12-12 04:16] LABS: DIFF IND NO
[2016-12-12 04:20] LABS: ALBUMIN SERUM 3.5 g/dL (3.5-5.0); BILIRUBIN,TOTAL 0.7 mg/dL (0.2-2.0); CALCIUM SERUM 9.3 mg/dL (8.4-10.2); CREATININE SERUM 0.3 mg/dL (0.6-1.4); GLOM FILT RATE Estimated 166.1 mL/min (>60); POTASSIUM 3.8 mmol/L (3.5-5.1); PROTEIN TOTAL SERUM 6.4 g/dL (6.0-8.3)
[2016-12-13 04:19] LABS: CALCIUM SERUM 9.2 mg/dL (8.4-10.2); CARBON DIOXIDE 39 mmol/L (22-31); CHLORIDE 93 mmol/L (100-111); GLUCOSE FASTING 155 mg/dL (70-110); POTASSIUM 3.4 mmol/L (3.5-5.1); SODIUM 140 mmol/L (135-145)
[2016-12-13 04:20] LABS: BLOOD UREA NITROGEN <5 mg/dL (9-23); BUN/CREATININE RATIO 16.66; CREATININE SERUM <0.3 mg/dL (0.6-1.4); GLOM FILT RATE Estimated UNABLE TO CALCULATE mL/min (>60)
[2016-12-13 05:57] LABS: ARTERIAL BLD GAS O2 SATURATION 95.6 % (90.0-100.0); ARTERIAL BLOOD GAS MET HB 0.8 %sat (0.0-2.0); ARTERIAL BLOOD GAS PO2 90.3 mmHg (80.0-100)
[2016-12-13 05:59] LABS: ARTERIAL BLOOD GAS ALLEN TEST NORMAL; ARTERIAL BLOOD GAS ART SITE LEFT RADIAL; ARTERIAL BLOOD GAS DELIVERY NASAL CANNULA; ARTERIAL DRAW? YES
[2016-12-13 12:56] LABS: ARTERIAL BLD GAS O2 SATURATION 91.5 % (90.0-100.0); ARTERIAL BLOOD GAS CARBOXY HB 0.5 %sat (0.0-9.0); ARTERIAL BLOOD GAS HCO3 43.9 mmol/L; ARTERIAL BLOOD GAS MET HB 0.6 %sat (0.0-2.0); ARTERIAL BLOOD GAS pH 7.361 (7.350-7.450)
[2016-12-13 12:57] LABS: ARTERIAL BLOOD GAS ART SITE LEFT RADIAL; ARTERIAL BLOOD GAS PCO2 77.8 mmHg (35.0-45.0); ARTERIAL BLOOD GAS PO2 58.6 mmHg (80.0-100); ARTERIAL DRAW? YES
[2016-12-13 12:58] LABS: ARTERIAL BLOOD GAS DELIVERY NASAL CANNULA
[2016-12-13 16:08] LABS: ARTERIAL BLD GAS O2 SATURATION 97.3 % (90.0-100.0); ARTERIAL BLOOD GAS CARBOXY HB 0.3 %sat (0.0-9.0); ARTERIAL BLOOD GAS MET HB 0.7 %sat (0.0-2.0); ARTERIAL BLOOD GAS PCO2 45.7 mmHg (35.0-45.0); ARTERIAL BLOOD GAS PO2 86.9 mmHg (80.0-100); ARTERIAL BLOOD GAS pH 7.528 (7.350-7.450)
[2016-12-13 16:09] LABS: ARTERIAL BLOOD GAS ART SITE RIGHT RADIAL; ARTERIAL DRAW? YES
[2016-12-13 16:10] LABS: ARTERIAL BLOOD GAS DELIVERY VENT; ARTERIAL BLOOD GAS VENT MODE AC
[2016-12-13 16:41] LABS: MAGNESIUM 1.7 mg/dL (1.6-3.0); POTASSIUM 3.9 mmol/L (3.5-5.1)
[2016-12-14 04:19] LABS: ARTERIAL BLD GAS O2 SATURATION 96.8 % (90.0-100.0); ARTERIAL BLOOD GAS CARBOXY HB 0.6 %sat (0.0-9.0); ARTERIAL BLOOD GAS HCO3 39.6 mmol/L; ARTERIAL BLOOD GAS MET HB 0.9 %sat (0.0-2.0); ARTERIAL BLOOD GAS PCO2 48.9 mmHg (35.0-45.0); ARTERIAL BLOOD GAS PO2 81.3 mmHg (80.0-100); ARTERIAL BLOOD GAS pH 7.517 (7.350-7.450)
[2016-12-14 04:27] LABS: ARTERIAL BLOOD GAS ALLEN TEST NORMAL; ARTERIAL BLOOD GAS ART SITE LEFT RADIAL; ARTERIAL BLOOD GAS DELIVERY VENT; ARTERIAL BLOOD GAS VENT MODE AC; ARTERIAL DRAW? YES
[2016-12-14 04:55] LABS: BASOPHIL% 0.5 % (0-2.5); EOSINOPHIL# 0.1 X10e3 (0-0.7); EOSINOPHIL% 0.7 % (0.0-7.0); HEMATOCRIT 43.1 % (38.0-50.0); HEMOGLOBIN 13.6 gm/dL (13.0-16.0); LYMPHOCYTE# 1.4 X10e3 (1.0-3.5); LYMPHOCYTE% 16.4 % (17.0-45.0); MEAN CELL VOLUME 88.5 FL (83-96); MEAN CORPUSCULAR HEMOGLOBIN 27.9 PG (28-34); MEAN CORPUSCULAR HGB CONC 31.5 g/dL (30-36); MEAN PLATELET VOLUME 10.5 FL (6.5-11.5); MONOCYTE% 10.9 % (3.0-12.0); NEUTROPHIL# 6.3 X10e3 (1.5-7.1); NEUTROPHIL% 71.5 % (40-75); PLATELET COUNT 167 X10e3 (140-420); RED BLOOD COUNT 4.88 X10e (3.90-5.60); RED CELL DISTRIBUTION WIDTH 14.5 % (11.0-15.5); WHITE BLOOD COUNT 8.8 X10e3 (4.0-10.5)
[2016-12-14 04:57] LABS: DIFF IND NO
[2016-12-14 05:25] LABS: CALCIUM SERUM 7.6 mg/dL (8.4-10.2); CREATININE SERUM 0.3 mg/dL (0.6-1.4); GLOM FILT RATE Estimated 166.1 mL/min (>60)
[2016-12-14 05:34] LABS: POTASSIUM 2.4 mmol/L (3.5-5.1)
[2016-12-15 00:05] LABS: BLOOD UREA NITROGEN 6 mg/dL (9-23); CALCIUM SERUM 7.5 mg/dL (8.4-10.2); CARBON DIOXIDE 33 mmol/L (22-31); CHLORIDE 99 mmol/L (100-111); CREATININE SERUM <0.3 mg/dL (0.6-1.4); GLOM FILT RATE Estimated UNABLE TO CALCULATE mL/min (>60); GLUCOSE FASTING 145 mg/dL (70-110); POTASSIUM 3.7 mmol/L (3.5-5.1); SODIUM 143 mmol/L (135-145)
[2016-12-15 04:33] LABS: ARTERIAL BLOOD GAS PCO2 52.9 mmHg (35.0-45.0); ARTERIAL BLOOD GAS pH 7.478 (7.350-7.450)
[2016-12-15 04:34] LABS: ARTERIAL BLD GAS O2 SATURATION 99.7 % (90.0-100.0); ARTERIAL BLOOD GAS ALLEN TEST NORMAL; ARTERIAL BLOOD GAS ART SITE LEFT RADIAL; ARTERIAL BLOOD GAS CARBOXY HB 0.2 %sat (0.0-9.0); ARTERIAL BLOOD GAS DELIVERY VENT; ARTERIAL BLOOD GAS HCO3 39.1 mmol/L; ARTERIAL BLOOD GAS MET HB 0.6 %sat (0.0-2.0); ARTERIAL BLOOD GAS VENT MODE AC; ARTERIAL DRAW? YES
[2016-12-15 05:23] LABS: HEMATOCRIT 43.7 % (38.0-50.0); HEMOGLOBIN 13.8 gm/dL (13.0-16.0); MEAN CELL VOLUME 88.8 FL (83-96); MEAN CORPUSCULAR HEMOGLOBIN 28.1 PG (28-34); MEAN CORPUSCULAR HGB CONC 31.6 g/dL (30-36); MEAN PLATELET VOLUME 10.7 FL (6.5-11.5); RED BLOOD COUNT 4.92 X10e (3.90-5.60); RED CELL DISTRIBUTION WIDTH 14.7 % (11.0-15.5); WHITE BLOOD COUNT 7.8 X10e3 (4.0-10.5)
[2016-12-15 05:57] LABS: ALBUMIN SERUM 2.4 g/dL (3.5-5.0); BILIRUBIN,TOTAL 0.5 mg/dL (0.2-2.0); CALCIUM SERUM 8.2 mg/dL (8.4-10.2); CREATININE SERUM 0.3 mg/dL (0.6-1.4); GLOM FILT RATE Estimated 166.1 mL/min (>60); MAGNESIUM 1.9 mg/dL (1.6-3.0); PHOSPHOROUS 1.2 mg/dL (2.5-4.6); POTASSIUM 4.4 mmol/L (3.5-5.1); PROTEIN TOTAL SERUM 5.7 g/dL (6.0-8.3)
[2016-12-16 04:05] LABS: HEMATOCRIT 44.6 % (38.0-50.0); HEMOGLOBIN 14.2 gm/dL (13.0-16.0); MEAN CORPUSCULAR HEMOGLOBIN 28.3 PG (28-34); MEAN CORPUSCULAR HGB CONC 31.8 g/dL (30-36); RED BLOOD COUNT 5.01 X10e (3.90-5.60); RED CELL DISTRIBUTION WIDTH 15.7 % (11.0-15.5); WHITE BLOOD COUNT 8.3 X10e3 (4.0-10.5)
[2016-12-16 04:28] LABS: ALBUMIN SERUM 2.5 g/dL (3.5-5.0); BILIRUBIN,TOTAL 0.5 mg/dL (0.2-2.0); BUN/CREATININE RATIO 33.33; CALCIUM SERUM 8.4 mg/dL (8.4-10.2); CREATININE SERUM 0.3 mg/dL (0.6-1.4); GLOM FILT RATE Estimated 166.1 mL/min (>60); MAGNESIUM 2.3 mg/dL (1.6-3.0); POTASSIUM 3.9 mmol/L (3.5-5.1); PROTEIN TOTAL SERUM 7.4 g/dL (6.0-8.3)
[2016-12-16 05:07] LABS: ARTERIAL BLD GAS O2 SATURATION 97.4 % (90.0-100.0); ARTERIAL BLOOD GAS CARBOXY HB 0.4 %sat (0.0-9.0); ARTERIAL BLOOD GAS HCO3 26.7 mmol/L; ARTERIAL BLOOD GAS MET HB 0.5 %sat (0.0-2.0); ARTERIAL BLOOD GAS PCO2 49.9 mmHg (35.0-45.0); ARTERIAL BLOOD GAS pH 7.337 (7.350-7.450)
[2016-12-16 05:58] LABS: ARTERIAL BLOOD GAS ALLEN TEST NORMAL; ARTERIAL BLOOD GAS ART SITE LEFT RADIAL; ARTERIAL BLOOD GAS DELIVERY VENT; ARTERIAL BLOOD GAS VENT MODE AC; ARTERIAL DRAW? YES
[2016-12-17 04:48] LABS: ARTERIAL BLD GAS O2 SATURATION 98.4 % (90.0-100.0); ARTERIAL BLOOD GAS CARBOXY HB 0.4 %sat (0.0-9.0); ARTERIAL BLOOD GAS HCO3 31.7 mmol/L; ARTERIAL BLOOD GAS MET HB 0.6 %sat (0.0-2.0); ARTERIAL BLOOD GAS PCO2 49.7 mmHg (35.0-45.0); ARTERIAL BLOOD GAS pH 7.413 (7.350-7.450)
[2016-12-17 05:01] LABS: ARTERIAL BLOOD GAS ALLEN TEST NORMAL; ARTERIAL BLOOD GAS ART SITE LEFT RADIAL; ARTERIAL BLOOD GAS DELIVERY VENT; ARTERIAL BLOOD GAS VENT MODE AC; ARTERIAL DRAW? YES
[2016-12-17 06:23] LABS: MAGNESIUM 2.1 mg/dL (1.6-3.0); POTASSIUM 4.3 mmol/L (3.5-5.1)
[2016-12-18 04:56] LABS: BASOPHIL# 0.1 X10e3 (0-0.3); BASOPHIL% 0.7 % (0-2.5); EOSINOPHIL# 0.2 X10e3 (0-0.7); HEMATOCRIT 38.7 % (38.0-50.0); HEMOGLOBIN 12.7 gm/dL (13.0-16.0); LYMPHOCYTE# 1.3 X10e3 (1.0-3.5); LYMPHOCYTE% 17.2 % (17.0-45.0); MEAN CELL VOLUME 86.4 FL (83-96); MEAN CORPUSCULAR HEMOGLOBIN 28.4 PG (28-34); MEAN CORPUSCULAR HGB CONC 32.8 g/dL (30-36); MONOCYTE# 0.7 X10e3 (0-1.0); MONOCYTE% 10.2 % (3.0-12.0); NEUTROPHIL% 68.9 % (40-75); PLATELET COUNT 208 X10e3 (140-420); RED BLOOD COUNT 4.48 X10e (3.90-5.60); RED CELL DISTRIBUTION WIDTH 14.6 % (11.0-15.5); WHITE BLOOD COUNT 7.3 X10e3 (4.0-10.5)
[2016-12-18 04:58] LABS: DIFF IND NO
[2016-12-18 05:04] LABS: ARTERIAL BLD GAS O2 SATURATION 97.6 % (90.0-100.0); ARTERIAL BLOOD GAS CARBOXY HB 0.7 %sat (0.0-9.0); ARTERIAL BLOOD GAS HCO3 33.6 mmol/L; ARTERIAL BLOOD GAS MET HB 1.1 %sat (0.0-2.0); ARTERIAL BLOOD GAS pH 7.463 (7.350-7.450)
[2016-12-18 05:14] LABS: ARTERIAL BLOOD GAS ALLEN TEST NORMAL; ARTERIAL BLOOD GAS ART SITE RIGHT RADIAL; ARTERIAL BLOOD GAS VENT MODE IMV; ARTERIAL DRAW? YES
[2016-12-18 05:32] LABS: BUN/CREATININE RATIO 46.66; CALCIUM SERUM 8.5 mg/dL (8.4-10.2); CREATININE SERUM 0.3 mg/dL (0.6-1.4); GLOM FILT RATE Estimated 166.1 mL/min (>60); POTASSIUM 3.9 mmol/L (3.5-5.1)
[2016-12-18 17:03] LABS: ARTERIAL BLD GAS O2 SATURATION 98.1 % (90.0-100.0); ARTERIAL BLOOD GAS CARBOXY HB 0.2 %sat (0.0-9.0); ARTERIAL BLOOD GAS HCO3 35.5 mmol/L; ARTERIAL BLOOD GAS MET HB 0.6 %sat (0.0-2.0)
[2016-12-18 17:04] LABS: ARTERIAL BLOOD GAS ART SITE RIGHT RADIAL; ARTERIAL BLOOD GAS DELIVERY BIPAP 16/5; ARTERIAL BLOOD GAS PCO2 56.1 mmHg (35.0-45.0); ARTERIAL DRAW? YES
[2016-12-18 19:03] LABS: ARTERIAL BLD GAS O2 SATURATION 94.5 % (90.0-100.0); ARTERIAL BLOOD GAS CARBOXY HB 0.8 %sat (0.0-9.0); ARTERIAL BLOOD GAS HCO3 35.8 mmol/L; ARTERIAL BLOOD GAS MET HB 0.9 %sat (0.0-2.0); ARTERIAL BLOOD GAS PO2 83.4 mmHg (80.0-100); ARTERIAL BLOOD GAS pH 7.337 (7.350-7.450)
[2016-12-18 19:04] LABS: ARTERIAL BLOOD GAS ALLEN TEST NORMAL; ARTERIAL BLOOD GAS ART SITE RIGHT RADIAL; ARTERIAL BLOOD GAS DELIVERY VENT; ARTERIAL BLOOD GAS PCO2 66.9 mmHg (35.0-45.0); ARTERIAL BLOOD GAS VENT MODE A/C; ARTERIAL DRAW? YES
[2016-12-19 04:39] LABS: BASOPHIL% 0.4 % (0-2.5); EOSINOPHIL# 0.2 X10e3 (0-0.7); EOSINOPHIL% 2.1 % (0.0-7.0); HEMATOCRIT 37.9 % (38.0-50.0); HEMOGLOBIN 12.5 gm/dL (13.0-16.0); LYMPHOCYTE# 1.2 X10e3 (1.0-3.5); LYMPHOCYTE% 11.7 % (17.0-45.0); MEAN CELL VOLUME 85.5 FL (83-96); MEAN CORPUSCULAR HEMOGLOBIN 28.2 PG (28-34); MONOCYTE% 10.4 % (3.0-12.0); NEUTROPHIL# 7.6 X10e3 (1.5-7.1); NEUTROPHIL% 75.4 % (40-75); PLATELET COUNT 231 X10e3 (140-420); RED BLOOD COUNT 4.44 X10e (3.90-5.60); RED CELL DISTRIBUTION WIDTH 14.4 % (11.0-15.5)
[2016-12-19 04:40] LABS: DIFF IND NO
[2016-12-19 04:54] LABS: ARTERIAL BLD GAS O2 SATURATION 98.1 % (90.0-100.0); ARTERIAL BLOOD GAS CARBOXY HB 0.5 %sat (0.0-9.0); ARTERIAL BLOOD GAS HCO3 37.4 mmol/L; ARTERIAL BLOOD GAS MET HB 0.3 %sat (0.0-2.0); ARTERIAL BLOOD GAS pH 7.466 (7.350-7.450)
[2016-12-19 05:16] LABS: ARTERIAL BLOOD GAS PCO2 51.9 mmHg (35.0-45.0); ARTERIAL DRAW? YES
[2016-12-19 05:17] LABS: ARTERIAL BLOOD GAS ALLEN TEST NORMAL; ARTERIAL BLOOD GAS ART SITE RIGHT RADIAL; ARTERIAL BLOOD GAS VENT MODE AC
[2016-12-19 05:32] LABS: BUN/CREATININE RATIO 53.33; CALCIUM SERUM 8.3 mg/dL (8.4-10.2); CREATININE SERUM 0.3 mg/dL (0.6-1.4); GLOM FILT RATE Estimated 166.1 mL/min (>60); POTASSIUM 3.3 mmol/L (3.5-5.1)
[2016-12-20 04:12] LABS: ARTERIAL BLD GAS O2 SATURATION 98.3 % (90.0-100.0); ARTERIAL BLOOD GAS CARBOXY HB 0.8 %sat (0.0-9.0); ARTERIAL BLOOD GAS MET HB 0.7 %sat (0.0-2.0); ARTERIAL BLOOD GAS PCO2 46.5 mmHg (35.0-45.0); ARTERIAL BLOOD GAS pH 7.472 (7.350-7.450)
[2016-12-20 04:52] LABS: BASOPHIL% 0.4 % (0-2.5); EOSINOPHIL# 0.3 X10e3 (0-0.7); EOSINOPHIL% 3.3 % (0.0-7.0); LYMPHOCYTE# 1.2 X10e3 (1.0-3.5); LYMPHOCYTE% 15.9 % (17.0-45.0); MEAN CELL VOLUME 86.9 FL (83-96); MEAN CORPUSCULAR HGB CONC 32.2 g/dL (30-36); MONOCYTE% 12.4 % (3.0-12.0); NEUTROPHIL# 5.3 X10e3 (1.5-7.1); PLATELET COUNT 219 X10e3 (140-420); RED BLOOD COUNT 3.91 X10e (3.90-5.60); RED CELL DISTRIBUTION WIDTH 14.1 % (11.0-15.5); WHITE BLOOD COUNT 7.8 X10e3 (4.0-10.5)
[2016-12-20 04:56] LABS: ARTERIAL BLOOD GAS ALLEN TEST NORMAL; ARTERIAL BLOOD GAS ART SITE LEFT RADIAL; ARTERIAL DRAW? YES
[2016-12-20 04:56] LABS: DIFF IND NO
[2016-12-20 04:57] LABS: ARTERIAL BLOOD GAS DELIVERY VENT; ARTERIAL BLOOD GAS VENT MODE AC
[2016-12-20 05:11] LABS: CALCIUM SERUM 8.4 mg/dL (8.4-10.2); CREATININE SERUM 0.3 mg/dL (0.6-1.4); GLOM FILT RATE Estimated 166.1 mL/min (>60); MAGNESIUM 2.1 mg/dL (1.6-3.0); PHOSPHOROUS 3.7 mg/dL (2.5-4.6)
[2016-12-21 00:36] LABS: ACETYLCHOLINE RECEPT BLOCK AB <15 (<15); ACETYLCHOLINE RECEPTER MODU AB 21 % (()); ACETYLCHOLINE RECEPTR BIND <0.30 nmol/L (<=0.30)
[2016-12-21 03:59] LABS: BASOPHIL# 0.1 X10e3 (0-0.3); BASOPHIL% 0.6 % (0-2.5); EOSINOPHIL# 0.3 X10e3 (0-0.7); EOSINOPHIL% 3.5 % (0.0-7.0); HEMATOCRIT 32.7 % (38.0-50.0); HEMOGLOBIN 10.7 gm/dL (13.0-16.0); LYMPHOCYTE# 1.4 X10e3 (1.0-3.5); LYMPHOCYTE% 14.8 % (17.0-45.0); MEAN CELL VOLUME 87.1 FL (83-96); MEAN CORPUSCULAR HEMOGLOBIN 28.5 PG (28-34); MEAN CORPUSCULAR HGB CONC 32.7 g/dL (30-36); MEAN PLATELET VOLUME 9.1 FL (6.5-11.5); MONOCYTE# 1.1 X10e3 (0-1.0); MONOCYTE% 11.6 % (3.0-12.0); NEUTROPHIL# 6.3 X10e3 (1.5-7.1); NEUTROPHIL% 69.5 % (40-75); PLATELET COUNT 225 X10e3 (140-420); RED BLOOD COUNT 3.76 X10e (3.90-5.60); WHITE BLOOD COUNT 9.1 X10e3 (4.0-10.5)
[2016-12-21 04:03] LABS: DIFF IND NO
[2016-12-21 04:15] LABS: INR 0.9; PARTIAL THROMBOPLASTIN TIME 26.3 SECONDS (23.5-31.3); PROTHROMBIN TIME (PATIENT) 9.3 SECONDS (9.6-11.5)
[2016-12-21 04:22] LABS: BUN/CREATININE RATIO 32.5; CALCIUM SERUM 8.5 mg/dL (8.4-10.2); CREATININE SERUM 0.4 mg/dL (0.6-1.4); GLOM FILT RATE Estimated 147.6 mL/min (>60); POTASSIUM 3.8 mmol/L (3.5-5.1)
[2016-12-21 04:53] LABS: ARTERIAL BLD GAS O2 SATURATION 98.2 % (90.0-100.0); ARTERIAL BLOOD GAS CARBOXY HB 0.8 %sat (0.0-9.0); ARTERIAL BLOOD GAS HCO3 33.8 mmol/L; ARTERIAL BLOOD GAS MET HB 0.7 %sat (0.0-2.0); ARTERIAL BLOOD GAS PCO2 44.6 mmHg (35.0-45.0); ARTERIAL BLOOD GAS pH 7.488 (7.350-7.450)
[2016-12-21 05:00] LABS: ARTERIAL BLOOD GAS ALLEN TEST NORMAL; ARTERIAL BLOOD GAS ART SITE RIGHT RADIAL; ARTERIAL BLOOD GAS DELIVERY VENT; ARTERIAL BLOOD GAS VENT MODE AC; ARTERIAL DRAW? YES
[2016-12-22 03:48] LABS: ARTERIAL BLD GAS O2 SATURATION 96.4 % (90.0-100.0); ARTERIAL BLOOD GAS CARBOXY HB 1.3 %sat (0.0-9.0); ARTERIAL BLOOD GAS HCO3 32.7 mmol/L; ARTERIAL BLOOD GAS MET HB 0.7 %sat (0.0-2.0); ARTERIAL BLOOD GAS PCO2 46.1 mmHg (35.0-45.0); ARTERIAL BLOOD GAS pH 7.459 (7.350-7.450)
[2016-12-22 03:58] LABS: ARTERIAL BLOOD GAS ALLEN TEST NORMAL; ARTERIAL BLOOD GAS ART SITE LEFT RADIAL; ARTERIAL BLOOD GAS DELIVERY VENT; ARTERIAL BLOOD GAS VENT MODE AC; ARTERIAL DRAW? YES
[2016-12-22 05:59] LABS: BASOPHIL% 0.4 % (0-2.5); EOSINOPHIL# 0.2 X10e3 (0-0.7); EOSINOPHIL% 2.2 % (0.0-7.0); HEMATOCRIT 32.5 % (38.0-50.0); HEMOGLOBIN 10.7 gm/dL (13.0-16.0); LYMPHOCYTE# 1.4 X10e3 (1.0-3.5); LYMPHOCYTE% 13.9 % (17.0-45.0); MEAN CELL VOLUME 86.6 FL (83-96); MEAN CORPUSCULAR HEMOGLOBIN 28.4 PG (28-34); MEAN CORPUSCULAR HGB CONC 32.8 g/dL (30-36); MONOCYTE# 0.9 X10e3 (0-1.0); MONOCYTE% 8.7 % (3.0-12.0); NEUTROPHIL# 7.5 X10e3 (1.5-7.1); NEUTROPHIL% 74.8 % (40-75); PLATELET COUNT 243 X10e3 (140-420); RED BLOOD COUNT 3.75 X10e (3.90-5.60); RED CELL DISTRIBUTION WIDTH 14.1 % (11.0-15.5); WHITE BLOOD COUNT 10.1 X10e3 (4.0-10.5)
[2016-12-22 06:04] LABS: DIFF IND NO
[2016-12-22 07:10] LABS: BLOOD UREA NITROGEN 9 mg/dL (9-23); CALCIUM SERUM 8.4 mg/dL (8.4-10.2); CARBON DIOXIDE 29 mmol/L (22-31); CHLORIDE 100 mmol/L (100-111); CREATININE SERUM <0.3 mg/dL (0.6-1.4); GLOM FILT RATE Estimated UNABLE TO CALCULATE mL/min (>60); GLUCOSE FASTING 79 mg/dL (70-110); MAGNESIUM 1.9 mg/dL (1.6-3.0); POTASSIUM 3.9 mmol/L (3.5-5.1); SODIUM 139 mmol/L (135-145)
[2016-12-23 04:43] LABS: BASOPHIL% 0.6 % (0-2.5); DIFF IND NO; EOSINOPHIL# 0.2 X10e3 (0-0.7); EOSINOPHIL% 2.7 % (0.0-7.0); HEMATOCRIT 31.1 % (38.0-50.0); HEMOGLOBIN 10.1 gm/dL (13.0-16.0); LYMPHOCYTE# 1.5 X10e3 (1.0-3.5); LYMPHOCYTE% 18.6 % (17.0-45.0); MEAN CELL VOLUME 87.3 FL (83-96); MEAN CORPUSCULAR HEMOGLOBIN 28.5 PG (28-34); MEAN CORPUSCULAR HGB CONC 32.6 g/dL (30-36); MEAN PLATELET VOLUME 8.7 FL (6.5-11.5); MONOCYTE# 0.9 X10e3 (0-1.0); MONOCYTE% 11.2 % (3.0-12.0); NEUTROPHIL# 5.6 X10e3 (1.5-7.1); NEUTROPHIL% 66.9 % (40-75); PLATELET COUNT 255 X10e3 (140-420); RED BLOOD COUNT 3.56 X10e (3.90-5.60); RED CELL DISTRIBUTION WIDTH 13.9 % (11.0-15.5); WHITE BLOOD COUNT 8.3 X10e3 (4.0-10.5)
[2016-12-23 05:13] LABS: BUN/CREATININE RATIO 33.33; CALCIUM SERUM 8.1 mg/dL (8.4-10.2); CREATININE SERUM 0.3 mg/dL (0.6-1.4); GLOM FILT RATE Estimated 166.1 mL/min (>60); MAGNESIUM 2.1 mg/dL (1.6-3.0); POTASSIUM 3.8 mmol/L (3.5-5.1)
[2016-12-23 08:07] LABS: ARTERIAL BLD GAS O2 SATURATION 95.8 % (90.0-100.0); ARTERIAL BLOOD GAS ALLEN TEST NORMAL; ARTERIAL BLOOD GAS ART SITE LEFT RADIAL; ARTERIAL BLOOD GAS CARBOXY HB 0.9 %sat (0.0-9.0); ARTERIAL BLOOD GAS DELIVERY VENT; ARTERIAL BLOOD GAS HCO3 33.6 mmol/L; ARTERIAL BLOOD GAS MET HB 0.6 %sat (0.0-2.0); ARTERIAL BLOOD GAS PCO2 48.6 mmHg (35.0-45.0); ARTERIAL BLOOD GAS PO2 82.9 mmHg (80.0-100); ARTERIAL BLOOD GAS VENT MODE CPAP; ARTERIAL BLOOD GAS pH 7.448 (7.350-7.450); ARTERIAL DRAW? YES
[2016-12-23 18:07] LABS: ARTERIAL BLD GAS O2 SATURATION 97.1 % (90.0-100.0); ARTERIAL BLOOD GAS CARBOXY HB 0.8 %sat (0.0-9.0); ARTERIAL BLOOD GAS MET HB 0.7 %sat (0.0-2.0); ARTERIAL BLOOD GAS PCO2 45.6 mmHg (35.0-45.0); ARTERIAL BLOOD GAS PO2 96.5 mmHg (80.0-100); ARTERIAL BLOOD GAS pH 7.468 (7.350-7.450)
[2016-12-23 18:08] LABS: ARTERIAL DRAW? YES
[2016-12-23 18:09] LABS: ARTERIAL BLOOD GAS ALLEN TEST NORMAL; ARTERIAL BLOOD GAS ART SITE RIGHT RADIAL; ARTERIAL BLOOD GAS DELIVERY VENT; ARTERIAL BLOOD GAS VENT MODE CPAP
[2016-12-24 04:01] LABS: ARTERIAL BLD GAS O2 SATURATION 97.8 % (90.0-100.0); ARTERIAL BLOOD GAS CARBOXY HB 0.8 %sat (0.0-9.0); ARTERIAL BLOOD GAS HCO3 31.8 mmol/L; ARTERIAL BLOOD GAS MET HB 0.7 %sat (0.0-2.0); ARTERIAL BLOOD GAS PCO2 46.7 mmHg (35.0-45.0); ARTERIAL BLOOD GAS pH 7.442 (7.350-7.450)
[2016-12-24 04:03] LABS: ARTERIAL BLOOD GAS ART SITE LEFT BRACHIAL; ARTERIAL BLOOD GAS DELIVERY VENT; ARTERIAL BLOOD GAS VENT MODE AC; ARTERIAL DRAW? YES
[2016-12-24 06:47] LABS: ALBUMIN SERUM 2.3 g/dL (3.5-5.0); ALKALINE PHOSPHATASE 49 U/L (32-92); ALT (SGPT) 26 U/L (10-40); AST (SGOT) 24 U/L (10-42); BILIRUBIN,TOTAL 0.5 mg/dL (0.2-2.0); BLOOD UREA NITROGEN 15 mg/dL (9-23); CALCIUM SERUM 8.6 mg/dL (8.4-10.2); CARBON DIOXIDE 30 mmol/L (22-31); CHLORIDE 104 mmol/L (100-111); GLUCOSE FASTING 125 mg/dL (70-110); POTASSIUM 3.8 mmol/L (3.5-5.1); PROTEIN TOTAL SERUM 6.8 g/dL (6.0-8.3); SODIUM 141 mmol/L (135-145)
[2016-12-24 06:49] LABS: CREATININE SERUM <0.3 mg/dL (0.6-1.4); GLOM FILT RATE Estimated UNABLE TO CALCULATE mL/min (>60)
[2016-12-25 05:37] LABS: BASOPHIL# 0.1 X10e3 (0-0.3); BASOPHIL% 0.8 % (0-2.5); EOSINOPHIL# 0.3 X10e3 (0-0.7); EOSINOPHIL% 3.4 % (0.0-7.0); HEMATOCRIT 30.6 % (38.0-50.0); HEMOGLOBIN 10.2 gm/dL (13.0-16.0); LYMPHOCYTE# 1.7 X10e3 (1.0-3.5); LYMPHOCYTE% 17.4 % (17.0-45.0); MEAN CELL VOLUME 86.3 FL (83-96); MEAN CORPUSCULAR HEMOGLOBIN 28.7 PG (28-34); MEAN CORPUSCULAR HGB CONC 33.2 g/dL (30-36); MEAN PLATELET VOLUME 8.4 FL (6.5-11.5); MONOCYTE# 0.8 X10e3 (0-1.0); NEUTROPHIL# 6.9 X10e3 (1.5-7.1); NEUTROPHIL% 70.4 % (40-75); PLATELET COUNT 286 X10e3 (140-420); RED BLOOD COUNT 3.54 X10e (3.90-5.60); RED CELL DISTRIBUTION WIDTH 13.9 % (11.0-15.5); WHITE BLOOD COUNT 9.8 X10e3 (4.0-10.5)
[2016-12-25 05:47] LABS: DIFF IND NO
[2016-12-25 06:18] LABS: BLOOD UREA NITROGEN 13 mg/dL (9-23); CALCIUM SERUM 8.6 mg/dL (8.4-10.2); CARBON DIOXIDE 30 mmol/L (22-31); CHLORIDE 104 mmol/L (100-111); GLUCOSE FASTING 142 mg/dL (70-110); POTASSIUM 4.2 mmol/L (3.5-5.1); SODIUM 140 mmol/L (135-145)
[2016-12-25 06:19] LABS: BUN/CREATININE RATIO 43.33; CREATININE SERUM <0.3 mg/dL (0.6-1.4); GLOM FILT RATE Estimated UNABLE TO CALCULATE mL/min (>60)
[2016-12-26 04:19] LABS: MAGNESIUM 2.2 mg/dL (1.6-3.0); POTASSIUM 3.8 mmol/L (3.5-5.1)
== END 2016-12-28 15:11 | DRG 4 ==
LOC: CED 15:40 → CEDOF 18:20 → C4C 12-11 13:20 → CICCU2 12-13 06:34 → C5B 12-27 15:26
PROVIDERS: Emergency Medicine; Family Medicine; Internal Medicine; Internal Medicine Gastroenterology; Internal Medicine Pulmonary Disease; Psychiatry & Neurology Neurology; Specialist; Surgery
PROC: B246YZZ Ultrasonography of Right and Left Heart using Other Contrast (ICD-10-PCS; 2016-12-10)
PROC: 0DB78ZX Excision of Stomach, Pylorus, Via Natural or Artificial Opening Endoscopic, Diagnostic (ICD-10-PCS; principal; 2016-12-11 12:00)
PROC: 5A1955Z Respiratory Ventilation, Greater than 96 Consecutive Hours (ICD-10-PCS; 2016-12-13)
PROC: 0BC38ZZ Extirpation of Matter from Right Main Bronchus, Via Natural or Artificial Opening Endoscopic (ICD-10-PCS; 2016-12-13)
PROC: B548ZZA Ultrasonography of Superior Vena Cava, Guidance (ICD-10-PCS; 2016-12-13)
PROC: 02HV33Z Insertion of Infusion Device into Superior Vena Cava, Percutaneous Approach (ICD-10-PCS; 2016-12-13)
PROC: 0BH17EZ Insertion of Endotracheal Airway into Trachea, Via Natural or Artificial Opening (ICD-10-PCS; 2016-12-13)
PROC: 0BH17EZ Insertion of Endotracheal Airway into Trachea, Via Natural or Artificial Opening (ICD-10-PCS; 2016-12-18)
PROC: 0DH63UZ Insertion of Feeding Device into Stomach, Percutaneous Approach (ICD-10-PCS; 2016-12-21)
PROC: 0B110F4 Bypass Trachea to Cutaneous with Tracheostomy Device, Open Approach (ICD-10-PCS; 2016-12-21 12:30)
DX: J69.0 Pneumonitis due to inhalation of food and vomit (principal); T17.490A Other foreign object in trachea causing asphyxiation, initial encounter; E87.0 Hyperosmolality and hypernatremia; K22.10 Ulcer of esophagus without bleeding; T17.590A Other foreign object in bronchus causing asphyxiation, initial encounter; G70.9 Myoneural disorder, unspecified; E83.39 Other disorders of phosphorus metabolism; E87.2 Acidosis; Z99.11 Dependence on respirator [ventilator] status; K29.00 Acute gastritis without bleeding; D86.9 Sarcoidosis, unspecified; Z84.89 Family history of other specified conditions; Z79.52 Long term (current) use of systemic steroids; R13.13 Dysphagia, pharyngeal phase; E87.6 Hypokalemia; D64.9 Anemia, unspecified; G47.00 Insomnia, unspecified
CPT/HCPCS: 36415; 36600; 70551; 71010; 71020; 71250; 72141; 74000; 74230; 80048; 80053; 80076; 82308; 82550; 82553; 82803; 82947; 83519; 83605; 83735; 83880; 84100; 84132; 84443; 84484; 85025; 85027; 85610; 85730; 87040; 87070; 87077; 87102; 87116; 87205; 87206; 88108; 88305; 92611; 93005; 93306; 94002; 94003; 94010; 94640; 94660; 94667; 94668; 94760; 94761; 97110; 97116; 97162; 97164; 97167; 97530; 97535; 99291; C9113; G0238; J0171; J0295; J1120; J1568; J1650; J1885; J1940; J2250; J2270; J2405; J2543; J2997; J3010; J3475; J3480

== ENCOUNTER → 2017-02-21 | Outpatient (CLI) | payer OTHER ==
[~2017-02-21] MED LIST changes: +ALBUTEROL17 GM INH; +DOXYCYCLINE HY100 M3 PO; +MEDROL PO; +MESTINON180 MG PO; +PATIENT'S PHARMACY; +PRILOSEC PO; +PYRIDOSTIGMINE60 M2 PO
== END | disposition home or self-care (01) ==
LOC: CRAD 09:40
DX: G70.00 Myasthenia gravis without (acute) exacerbation (principal)
CPT/HCPCS: 74230; 92611

== ENCOUNTER 2017-04-19 07:07 | Inpatient (IN) | payer OTHER ==
[~2017-04-19] VITALS: Ht 172.7 cm; Wt 94.4 kg
--- NOTE | ~2017-04-19 | DS ---
Unit #: [id number] #: [id number] Patient: MARIELENA LINO [id number] [address] [address] [id number] I MR#: [id number] NAME: MARIELENA LINO ROOM: 333 Age: 42 Sex: M Admission Date: 04/19/2017 : 1975 Discharge Date: 04/21/2017 Attending Physician: Иван Rossi M.D. Primary Care Physician: Ron Faith M.D. DISCHARGE SUMMARY DISCHARGE DIAGNOSES 1. Pneumonia. 2. Right hemidiaphragm. 3. Acute bronchitis. 4. Myasthenia gravis exacerbation. PERTINENT HISTORY AND HOSPITAL COURSE The patient is a 42-year-old man with a history of sarcoidosis and a diagnosis of myasthenia gravis, on pyridostigmine bromide. Patient presented with symptoms of shortness of breath along with cough and congestion with thick phlegm and difficulty clearing his phlegm. During his admission, chest x-ray demonstrated a right hemidiaphragm. Sputum cultures demonstrated gram-positive cocci in pairs and chains, a few gram-positive cocci in clusters, and a few gram-negative rods. Culture and sensitivity are still pending. Chest x-ray demonstrated a right hemidiaphragm with right basilar atelectasis, left lung clear. The patient was treated with empiric IV antibiotics. Pulmonary consultation followed the patient during the admission. His chest symptoms resolved. Neurology consultation was also obtained, and patient's Mestinon dose was increased and recommended that patient follow up with his neurologist. His symptoms have resolved, his vitals are stable, and the patient will be discharged today. DISCHARGE MEDICATIONS 1. Albuterol inhaler 2 puffs 4 times daily as needed for shortness of breath. 2. Medrol Dosepak 4 mg tapering dose. 3. Pyridostigmine bromide 120 mg 3 times daily. 4. Omeprazole 20 mg once daily. DISCHARGE INSTRUCTIONS 1. Patient is to follow up with his primary care physician. 2. Patient is to follow up with his pulmonary physician. His pulmonary physician can follow up pending sputum culture and sensitivities. 3. Patient is to follow up with his neurologist. 1. Dictated by... Иван Rossi M.D. Unit #: [id number] #: [id number] Patient: MARIELENA LINO TD: 04/23/2017 17:50 JOB #: [id number] DISCHARGE SUMMARY Page 1 of 1 X X DISCHARGE SUMMARY
--- NOTE | ~2017-04-19 | CR72 ---
[facility] A Service of [facility] RADIOLOGY TEXT RESULTS PATIENT: MARIELENA LINO LOCATION: [facility] 333-01 : 75 UNIT #: [id number] AGE: [address]: BAYLEE VARELA V SEX: M ORDER DR: [id number] [facility] [address] [facility]. [place], [place] [address] [id number] I MR#: [id number] Acc #: [id number] NAME: MARIELENA LINO : 1975 SEX: M STUDY DATE/TIME: 04/21/2017 5:51 UNIT: [address] ROOM: [facility] STUDY DESCRIPTION: CR Chest Single View Portable Attending Physician: Baylee Varela M.D. Ordering Physician: Donnie Abdul M.D. Primary Care Physician: Ron Faith M.D. MEDICAL IMAGING REPORT This report is preliminary unless electronic signature is present EXAM Single view chest INDICATION Right hemidiaphragm elevation. Shortness of air and cough. FINDINGS Single portable AP view of the chest compared to 04/20/2017. The heart and mediastinal contours are unchanged. The right hemidiaphragm is elevated occupying at least one half of the right hemidiaphragm. Left lung is clear. IMPRESSION No interval change. Dictated by... Sivakumar Mg M.D. THIS IS AN ELECTRONICALLY VERIFIED REPORT Sivakumar Mg M.D. at 04/25/2017 9:23 AM RPMj/chaz TD: 04/21/2017 14:49 JOB #: [id number] MEDICAL IMAGING REPORT Page 1 of 1 COPY
--- NOTE | ~2017-04-19 | CR72 ---
[facility] A Service of [facility] RADIOLOGY TEXT RESULTS PATIENT: MARIELENA LINO LOCATION: [facility] 333- : [birth year] UNIT #: [id number] AGE: [address]: BAYLEE VARELA V SEX: M ORDER DR: [id number] [facility] [address]. [place], [place] [address] [id number] I MR#: [id number] Acc #: [id number] NAME: MARIELENA LINO : 1975 SEX: M STUDY DATE/TIME: 04/20/2017 5:51 UNIT: [address] ROOM: [facility] STUDY DESCRIPTION: CR Chest Single View Portable Attending Physician: Baylee Varela M.D. Ordering Physician: Donnie Abdul M.D. Primary Care Physician: Ron Faith M.D. MEDICAL IMAGING REPORT This report is preliminary unless electronic signature is present EXAM Portable chest 04/20/2017 HISTORY 42-year-old male with shortness of air and cough for 2 days. COMPARISON Chest 04/19/2017 FINDINGS 2 frontal views of the chest again demonstrate marked elevation of the right hemidiaphragm with right basilar atelectasis. Left lung clear. No pneumothorax. Heart size and mediastinum are stable. IMPRESSION No change in marked elevation of the right hemidiaphragm with associate right basilar atelectasis. No other acute chest findings. No change from 04/19/2017. Dictated by... Connor Marquis M.D. THIS IS AN ELECTRONICALLY VERIFIED REPORT Connor Marquis M.D. at 04/21/2017 4:54 PM SANDRA/gracie TD: 04/20/2017 08:16 JOB #: [id number] MEDICAL IMAGING REPORT Page 1 of 1 COPY
--- NOTE | ~2017-04-19 | CO ---
Unit #: [id number] #: [id number] Patient: MARIELENA LINO [id number] [facility] [address] [facility]. [place], [place] [address] [id number] Joselin MR#: [id number] NAME: MARIELENA LINO ROOM: 333 Age: 42 Sex: M Admission Date: 04/19/2017 : 1975 Attending Physician: Иван Rossi M.D. Primary Care Physician: Ron Faith M.D. Consultation Date: 04/19/2017 CONSULTATION REPORT PRIMARY CARE PHYSICIAN Marielena Faith. REASON FOR CONSULTATION 1. History of myasthenia gravis. 2. Fatigue and weakness, and shortness of air, and difficulty swallowing. PATIENT IDENTIFICATION This is a 42-year-old, right-handed, white male, who is evaluated in room 9 in the ER at [facility]. SOURCE OF INFORMATION The patient and medical records. PROBLEM LIST 1. History of sarcoidosis. 2. Likely myasthenia gravis. 3. Right hand surgery. 4. Status post trach and PEG in the past. 5. Paralyzed hemidiaphragm. 6. GERD. HISTORY OF PRESENT ILLNESS This is a 42-year-old gentleman, whom we saw last in November of this year. He had dysphagia, so we were concerned he may have myasthenia gravis. We did workup on him and it looks like he was a seronegative myasthenia gravis. He was sent to Dr. Johnson as outpatient and he was diagnosed with myasthenia gravis based on his nerve conduction EMG as the patient and his mother tells me, but lately since he has sarcoidosis, it looks like Dr. Johnson wanted to have another opinion, so he sent him to Dr. Barr who was neuromuscular specialist at the [facility], and Dr. Barr increased his medication and put him on low-dose steroids. The patient started having some problems with swallowing and he said it was before the whole change in medication. His medications were pyridostigmine and he was taking 120 mg t.i.d. and he ended up with 120 mg q.i.d. and also 4 mg methylprednisolone. Again, his symptoms were before all this change was made, so I cannot blame the medication yet. Also he has no cramping or other issues. He does have some neck weakness and again Dr. Barr is working him up to try to find out if there is any cause identified otherwise. No falls or injuries or other issues known to me. No diplopia. He is being worked up for possibility of some sort of respiratory tract Unit #: [id number] #: [id number] Patient: MARIELENA LINO infection. PAST MEDICAL HISTORY As discussed above. PAST SURGICAL HISTORY As discussed above. ALLERGIES None known to me. HOME MEDICATIONS Medrol 4 mg p.o., pyridostigmine 120 mg q.i.d., Ventolin 2 puffs daily, Prilosec 20 mg p.o. daily. FAMILY HISTORY Hypothyroidism in mother. No neurologic issue. SOCIAL HISTORY The patient lives with his mother. He is normally independent in activities of daily living. No tobacco use. Some alcohol use. REVIEW OF SYSTEMS Mostly as discussed in history of present illness. Some swallowing problems, fatigue, and breathing issues. CONSTITUTIONAL: He denies any weight issues, fever, chills, rigor, or sweats. HEENT: No headaches. Some swallowing problem. CARDIOVASCULAR: No chest pain, clubbing, cyanosis, orthopnea, or palpitation. PULMONARY: He is having some expectoration. GI: No nausea, vomiting, diarrhea, or constipation. No cramping. : No genitourinary issues. BACK: No back problems. PSYCHIATRIC: No psychotic issue. NEUROLOGIC: Neuromuscular disorder. No other hematologic, dermatologic, or endocrine issues known to me. PHYSICAL EXAMINATION VITAL SIGNS: Temperature 97.5, pulse 75, respirations 21, blood pressure 117/83. His maximum blood pressure was 159 systolic and 108 diastolic. O2 saturations were 96% to 100%. Weight of 208 pounds. BMI was 31. NEUROLOGIC: He is awake. He is alert. He is oriented. He can name and he can follow commands. No right or left confusion. No finger agnosia. Cranial examination, he is a little bit of asymmetry of his palpebral fissures, left one is narrow. One minute upward gaze did not change anything. No ptosis, otherwise no nystagmus. Full maxwell of vision. Pupils are round, reactive to light, and accommodation. Sensation on the face and scalp are normal. Strength of muscles of facial expression are normal and symmetric. Hearing seemed to be intact. Tongue was midline. Uvula was midline. Head turning was spontaneous. He does have neck flexion weakness. He is more like 4+. Extension was 5-. On motor exam, he has normal bulk and tone. Strength was 5-/5 all over. Unit #: [id number] #: [id number] Patient: MARIELENA LINO Sensory examination intact for soft touch and pain sensation. No extinction was seen. Romberg was not evaluated. Gait examination was deferred. I could not get any reflexes. Toes are equivocal. DIAGNOSTIC STUDIES LABORATORY RESULTS: Random glucose was 172. White count was 13, H and H of 15 and 45.6, platelet count was 234. IMPRESSION 1. Possible some respiratory issues and making his myasthenia gravis worse. 2. Myasthenia gravis, other neuromuscular condition and since he has sarcoidosis, I will leave the final diagnoses after his consultation to Dr. Barr and Dr. Johnson. In the meantime, I will continue with the present medication. Watch him closely for any contraindicated medication, then I had pharmacy consultation placed. Pulmonary is going to see him and he does not look like he is in myasthenic or muscarinic crisis, so I will observe him closely and call me for any other questions, issues, or concerns. I talked to the patient and his mother and he can follow up with Dr. Barr at [facility]. Dictated by... Guillermo Smith/keysha TD: 04/20/2017 05:27 JOB #: [id number] CONSULTATION REPORT Page 1 of 1 X Kati Gomez MD CONSULTATION REPORT
--- NOTE | ~2017-04-19 | CO ---
Unit #: [id number] #: [id number] Patient: MARIELENA LINO [id number] [facility]. [place], [place] [address] [id number] Joselin MR#: [id number] NAME: MARIELENA LINO ROOM: 333 Age: 42 Sex: M Admission Date: 04/19/2017 : 1975 Attending Physician: Иван Rossi M.D. Primary Care Physician: Ron Faith M.D. Consultation Date: 04/19/2017 CONSULTATION REPORT HISTORY OF PRESENT ILLNESS This is a 42-year-old with a history of sarcoidosis, myasthenia gravis, who presented to the hospital with worsening shortness of breath for several days. The patient was seen by Dr. Barr at [facility] and he was given a steroid burst to help with the myasthenia. I had seen the patient last week in the office. He was having increased sinus issues, but at that time was not having worsening shortness of breath. Now he has worsening cough, difficulty swallowing and congestion. He is having some chest tightness. He is having some shortness of air and, therefore, the patient is ready to be admitted for shortness of air, questionable myasthenia crisis. I do not believe this patient is having myasthenia crisis because the patient's symptoms are not worse. The patient also has a history of paralyzed diaphragm, which appears unchanged on chest x-ray. The patient is coughing thick phlegm. Plan is to send for culture. PAST MEDICAL HISTORY 1. Significant for sarcoidosis. 2. Myasthenia gravis. 3. Paralyzed diaphragm. PAST SURGICAL HISTORY Right hand surgery. SOCIAL HISTORY The patient has no history of tobacco or alcohol use. 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 FAMILY HISTORY Mom with hypothyroidism. No neurological disorders. ALLERGIES No known drug allergies. HOME MEDICATIONS 1. Medrol Dosepak. 2. Pyridostigmine. 3. Ventolin. 4. Prilosec. REVIEW OF SYSTEMS Positive for shortness of breath, cough, difficulty swallowing, no fever or chills. No nausea, vomiting or diarrhea. Otherwise a 12-point review of systems is negative. Unit #: [id number] #: [id number] Patient: MARIELENA LINO PHYSICAL EXAMINATION VITALS: T-current 97.5, pulse 98, respiratory rate 16, blood pressure 159/108, saturating 100% on room air. CHEST: Decreased breath sounds bilaterally. HEART: Regular rate. No gallop. ABDOMEN: Soft, nontender and nondistended. Positive bowel sounds. EXTREMITIES: Trace edema bilaterally. DIAGNOSTIC STUDIES LABORATORY: White blood cell count 13, hemoglobin 15, platelets 234, BUN 10, creatinine 0.5, bicarb 25, potassium 3.6. ASSESSMENT 1. The patient has myasthenia gravis. He is on a steroid burst. We should continue steroids while he is here. I will continue Mestinon. I do not think that the patient's current shortness of breath is associated with it. 2. Elevated diaphragm. This appears to be chronic and unchanged on chest x-ray. Let's see if there is any change. 3. Sinusitis and bronchitis. The patient is worsening, so therefore we are going to give him steroid and we are going to check procalcitonin to rule out pneumonia. Let's also get a PFT to evaluate his peak expiratory flow and his negative inspiratory force. Hopefully this patient will be able to be discharged home soon. Thank you very much for this consult and allowing us to participate in the care of this patient. Dictated by... Guillermo Sin TD: 04/23/2017 13:34 JOB #: [id number] CONSULTATION REPORT Page 1 of 1 X Leeroy Abdul MD X CONSULTATION REPORT
--- NOTE | ~2017-04-19 | CR72 ---
[facility] A Service of [facility] RADIOLOGY TEXT RESULTS PATIENT: MARIELENA LINO LOCATION: [facility] 333-01 : [birth year] UNIT #: [id number] AGE: [address]: BARB LLAMAS MD SEX: M ORDER DR: [id number] [facility] [address] [facility]. [place], [place] [address] [id number] MR#: [id number] Acc #: [id number] NAME: MARIELENA LINO : 1975 SEX: M STUDY DATE/TIME: 04/19/2017 7:37 UNIT: [facility] ROOM: STUDY DESCRIPTION: CR Chest Single View Portable Attending Physician: Alicia Ley M.D. Ordering Physician: Alicia Ley M.D. Primary Care Physician: Ron Faith M.D. MEDICAL IMAGING REPORT This report is preliminary unless electronic signature is present EXAM Portable chest 04/19 INDICATION Shortness of air, cough, congestion today. FINDINGS AP portable chest compared with 12/29/2016. Marked elevation of the right hemidiaphragm is again seen with some chronic atelectasis at the right base. There is some minimal atelectasis noted the left lung base. Heart size stable. No pneumothorax. Dictated by... Gonzalo Tovar Jr., M.D. THIS IS AN ELECTRONICALLY VERIFIED REPORT Gonzalo Tovar Jr., M.D. at 04/19/2017 5:09 PM ODILIA/gracie TD: 04/19/2017 09:50 JOB #: [id number] MEDICAL IMAGING REPORT Page 1 of 1 COPY
--- NOTE | ~2017-04-19 | HP ---
Unit #: [id number] #: [id number] Patient: MARIELENA LINO [id number] [address] [address] [id number] I MR#: [id number] NAME: MARIELENA LINO ROOM: 333 Age: 42 Sex: M Admission Date: 04/19/2017 : 1975 Attending Physician: Barb Bailon M.D. Primary Care Physician: Ron Faith M.D. HISTORY AND PHYSICAL CHIEF COMPLAINT Shortness of breath. HISTORY OF PRESENT ILLNESS The patient is a 42-year-old male with a history of sarcoidosis and recent diagnosis of myasthenia gravis, on pyridostigmine bromide, who presented to the emergency room complaining of shortness of breath. The patient follows with Dr. Barr at [facility]. The patient was seen by him on Monday, and he was started on Solu-Medrol. However, the patient continues to have shortness of breath with congestion and is being admitted for the above reasons. The patient also complains of increased congestion/cough with thick phlegm and difficulty swallowing. Patient is being admitted for the above reasons. PAST MEDICAL HISTORY 1. Sarcoidosis. 2. Myasthenia gravis. 3. Paralyzed hemidiaphragm. PAST SURGICAL HISTORY Right hand surgery. HOME MEDICATIONS 1. Medrol Dosepak. 2. Pyridostigmine. 3. Ventolin. 4. Prilosec. ALLERGIES No known drug allergies. SOCIAL HISTORY No history of tobacco or alcohol use. 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 FAMILY HISTORY Notable for his mother having hypothyroidism. REVIEW OF SYSTEMS Positive for shortness of breath, positive for productive cough, and positive for difficulty swallowing. Denies any fever and denies any chills. All other systems have been reviewed and are negative. PHYSICAL EXAMINATION Unit #: [id number] #: [id number] Patient: MARIELENA LINO GENERAL: Patient is lying in bed not in acute distress. VITAL SIGNS: Temperature 97.5, pulse 98, respiratory rate 16, blood pressure 159/108, and saturating 100% on room air. HEENT: Head atraumatic, normocephalic. Pupils equal, round, and reactive to light and accommodation. Extraocular movements are intact. Dry mucous membranes. NECK: Supple. LUNGS: Decreased air entry at the bases. HEART: Regular rate and rhythm. ABDOMEN: Soft. Positive bowel sounds. EXTREMITIES: No cyanosis, no clubbing. NEUROLOGIC: No gross focal motor deficit. DIAGNOSTIC STUDIES LABORATORY: Lactic acid is 1.3. BNP is 12. Sodium 142, potassium 3.4, chloride 103, bicarb 25, glucose 172, BUN 10, creatinine 0.5, AST 24, ALT 16, and alkaline phosphatase 62. Lactic acid is 3.9. His pH is 7.42, PCO2 is 39, PO2 is 80, bicarb 25.5, oxygen saturation 95.1. WBC 13, hemoglobin 15, hematocrit 45.6, and platelets 234,000. IMAGING: Chest x-ray shows marked elevation of the right hemidiaphragm is again seen with some chronic atelectasis at the right base. There is some minimal atelectasis noted at the left lung base. Heart size stable. No pneumothorax. ASSESSMENT 1. Myasthenia gravis. 2. Sarcoidosis. 3. Paralyzed right hemidiaphragm. 4. Lactic acidosis. PLAN Admit the patient to observation with telemetry. Continue with pyridostigmine and change the Medrol Dosepak to IV steroids. (1) Neurology consult. Lactic acid elevated probably secondary to myasthenia gravis but no evidence of infection. Hold the antibiotics, and further recommendations will follow as more lab results are available. Dictated by Guillermo Rogers TD: 04/19/2017 15:30 JOB #: [id number] HISTORY AND PHYSICAL Page 1 of 1 X BARB BAILON MD HISTORY AND PHYSICAL
[~2017-04-19 07:07] MED LIST changes: -ALBUTEROL17 GM INH; -DOXYCYCLINE HY100 M3 PO; -MEDROL PO; -MESTINON180 MG PO; -PATIENT'S PHARMACY; -PRILOSEC PO; -PYRIDOSTIGMINE60 M2 PO
[2017-04-19 08:04] LABS: BASOPHIL# 0.1 X10e3 (0-0.3); BASOPHIL% 0.5 % (0-2.5); DIFF IND NO; EOSINOPHIL# 0.2 X10e3 (0-0.7); EOSINOPHIL% 1.5 % (0.0-7.0); HEMATOCRIT 45.6 % (38.0-50.0); LYMPHOCYTE# 1.2 X10e3 (1.0-3.5); LYMPHOCYTE% 9.5 % (17.0-45.0); MEAN CELL VOLUME 84.8 FL (83-96); MEAN CORPUSCULAR HEMOGLOBIN 27.9 PG (28-34); MEAN CORPUSCULAR HGB CONC 32.9 g/dL (30-36); MONOCYTE# 0.6 X10e3 (0-1.0); MONOCYTE% 4.3 % (3.0-12.0); NEUTROPHIL# 10.9 X10e3 (1.5-7.1); NEUTROPHIL% 84.2 % (40-75); PLATELET COUNT 234 X10e3 (140-420); RED BLOOD COUNT 5.38 X10e (3.90-5.60); RED CELL DISTRIBUTION WIDTH 14.7 % (11.0-15.5)
[2017-04-19 08:04] LABS: ARTERIAL BLD GAS O2 SATURATION 95.1 % (90.0-100.0); ARTERIAL BLOOD GAS CARBOXY HB 0.5 %sat (0.0-9.0); ARTERIAL BLOOD GAS HCO3 25.5 mmol/L; ARTERIAL BLOOD GAS MET HB 0.5 %sat (0.0-2.0); ARTERIAL BLOOD GAS PCO2 39.4 mmHg (35.0-45.0); ARTERIAL BLOOD GAS PO2 80.2 mmHg (80.0-100)
[2017-04-19 08:05] LABS: ARTERIAL BLOOD GAS ART SITE RIGHT RADIAL; ARTERIAL DRAW? YES
[2017-04-19 08:28] LABS: ALBUMIN SERUM 4.1 g/dL (3.5-5.0); BILIRUBIN, DIRECT 0.1 mg/dL (0.0-0.2); BILIRUBIN,INDIRECT 0.4 mg/dL (0.0-0.9); BILIRUBIN,TOTAL 0.5 mg/dL (0.2-2.0); CALCIUM SERUM 9.2 mg/dL (8.4-10.2); CREATININE SERUM 0.5 mg/dL (0.6-1.4); GLOM FILT RATE Estimated 133.7 mL/min (>60); POTASSIUM 3.4 mmol/L (3.5-5.1); PROTEIN TOTAL SERUM 7.4 g/dL (6.0-8.3)
[2017-04-19] MEDS ORDERED: PATIENT'S PHARMACY (09:37)
[2017-04-19] MEDS ORDERED: MEDROL PO (09:38)
[2017-04-19] MEDS ORDERED: PRILOSEC PO (09:39)
[2017-04-19] MEDS ORDERED: ALBUTEROL17 GM INH (09:39)
[2017-04-19] MEDS ORDERED: PYRIDOSTIGMINE60 M2 PO (09:39)
[2017-04-20 05:20] LABS: HEMATOCRIT 43.5 % (38.0-50.0); HEMOGLOBIN 14.4 gm/dL (13.0-16.0); MEAN CORPUSCULAR HEMOGLOBIN 27.8 PG (28-34); MEAN CORPUSCULAR HGB CONC 33.1 g/dL (30-36); MEAN PLATELET VOLUME 9.2 FL (6.5-11.5); RED BLOOD COUNT 5.18 X10e (3.90-5.60); RED CELL DISTRIBUTION WIDTH 14.2 % (11.0-15.5); WHITE BLOOD COUNT 8.3 X10e3 (4.0-10.5)
[2017-04-20 06:54] LABS: BUN/CREATININE RATIO 23.33; CALCIUM SERUM 9.4 mg/dL (8.4-10.2); CREATININE SERUM 0.6 mg/dL (0.6-1.4); GLOM FILT RATE Estimated 124.1 mL/min (>60); POTASSIUM 4.7 mmol/L (3.5-5.1)
[2017-04-20 09:53] LABS: URINE SOURCE CLEAN CATCH
[2017-04-20 10:13] LABS: URINE APPEARANCE CLEAR; URINE BILIRUBIN NEG (NEG); URINE BLOOD NEG (NEG); URINE COLOR YELLOW; URINE GLUCOSE NEG (NEG); URINE KETONE NEG (NEG); URINE LEUKOCYTE ESTERASE NEG (NEG); URINE NITRATE NEG (NEG); URINE PROTEIN NEG (NEG); URINE SPECIFIC GRAVITY 1.015 (1.003-1.035); URINE UROBILINOGEN 0.2 MG/DL (NEG)
[2017-04-21] MEDS ORDERED: MESTINON180 MG PO (12:00)
[2017-04-21] MEDS ORDERED: DOXYCYCLINE HY100 M3 PO (12:01)
== END 2017-04-21 13:28 | disposition home or self-care (01) | DRG 56 ==
LOC: CED 07:07 → C3A PCU 09:25 → CEDOF 09:25 → CED 09:55 → CEDOF 09:55 → C3A PCU 14:31 → CEDOF 14:31 → C3A PCU 14:31
PROVIDERS: Emergency Medicine; Internal Medicine
DX: G70.01 Myasthenia gravis with (acute) exacerbation (principal); J18.9 Pneumonia, unspecified organism; E87.2 Acidosis; J98.6 Disorders of diaphragm; J20.9 Acute bronchitis, unspecified; D86.9 Sarcoidosis, unspecified; K21.9 Gastro-esophageal reflux disease without esophagitis; Z84.89 Family history of other specified conditions
CPT/HCPCS: 36415; 36600; 71010; 80048; 80076; 81003; 82308; 82803; 83605; 83735; 83880; 85025; 85027; 87040; 87070; 87086; 87205; 94640; 94760; 96374; 96375; 99285; J2543; J2920; J3260; J3370